=== PATIENT | female | born 1950 | race Caucasian/White ===

== ENCOUNTER 2025-07-29 19:20 | Inpatient (IN) | payer MEDICARE, SELFPAY ==
--- OUTSIDE RECORDS SUMMARY | 2025-02-03 09:00 | XMS_ITS ---
Author Organization [facility] Address [address] [place] [address] Care Team Providers Care Manufacturing Controls Engineer Name Role Phone BULL CONNORS MD Primary Care Provider JARRETT Mendoza Unavailable [phone] REASON FOR VISIT injection Encounters Encounter Location Date Provider Diagnosis [facility] [address] [place] [phone] 02/03/2025 JARRETT MILLER Plan Of Treatment No Information Progress Notes * IRENE FREEMANOB:[birth year] (74 yo F)Acc No.[id number]:02/03/2025 Progress Notes Patient: SONU SCHAFER Provider: Kassy Miller MD :1950 A ge:74 Y S ex:Female Date:02/03/2025 Address:[address] [place], [place] [id number] Pcp:BULL CONNORS MD Subjective: * Chief Complaints: * 1 . Injection. * Medical History: Objective: * Vitals: Assessment: Plan: * Treatment: * Images: * Electronic signature of SUSANNAH BEGUM MD on 07/29/2025 at 07:25 PM EDT Sign off status: Pending * Provider: Kassy Miller MD Date: 02/03/2025 Generated for Oscari ng/Faizaiahg/eTransmitting on: 0 07/29/2025 07:25 PM EDT
--- OUTSIDE RECORDS SUMMARY | 2025-04-17 09:30 | XMS_ITS ---
Author Organization [facility] Address [address] [place] [address] Care Team Providers Care Barrel Cooper Name Role Phone BULL CONNORS MD Primary Care Provider UnavailJARRETT Greer Unavailable [phone] REASON FOR VISIT sick Medications Medication SIG (Take, Route, Frequency, Duration) Notes Start Date End Date Status Furosemide Not-Takin g amLODIPine Benzoate 5mg Not-Taking Omeprazole 20 MG 1 Capsule Orally Onc e a day Active Rosuvastatin Calcium 20 MG 1 tablet Orally Once a day Active Aspir-81 Not-Taking Aspirin 81 81 MG 1 tablet Orally Once a day Active Vitamin D3 125 MCG (5000 UT) 1 capsule Orally Once a day Active oxyCODONE-Acetaminophen 5-325 MG 1 tablet as needed Orally every 6 hrs Active Ferrous Sulfate 325 (65 Fe) MG 1 tablet Orally daily Active DULoxetine HCl 60 MG 1 capsule Orally On ce a day Active Encounters Encounter Location Date Provider Diagnosis [facility] [address] [place] [phone] 04/17/2025 JARRETT MILLER Plan Of Treatment No Information Progress Notes * SERGIODASHAYANIQUE KHANBRITNEYOB:[birth year] (74 yo F)Acc No.[id number]:04/17/2025 Progress Notes Patient: SONU SCHAFER Provider: Kassy Miller MD :1950 A ge:74 Y S ex:Female Date:04/17/2025 Address:[address] [facility] Pcp:BULL CONNORS MD Subjective: * Chief Complaints: * 1 . Sick. * Medical History: * Medications: T aking Aspirin 81 81 MG Tablet Delayed Release 1 tablet Orally Once a day , Taking oxyCODONE-Acetaminophen 5-325 MG Tablet 1 tablet as needed Orally every 6 hrs , Taking Vitamin D3 125 MCG (5000 UT) Capsule 1 capsule Orally Once a day , Taking DULoxetine HCl 60 MG Capsule Delayed Release Particles 1 capsule Orally Once a day , Taking Ferrous Sulfate 325 (65 Fe) MG Tablet 1 tablet Orally daily , Taking Rosuvastatin Calcium 20 MG Tablet 1 tablet Orally Once a day , Taking Omeprazole 20 MG Capsule Delayed Release 1 Capsule Orally Once a day , Not-Taking/PRN Aspir-81 , Not-Taking/PRN amLODIPine Benzoate , Notes to Pharmacist: 5mg, Not-Taking/PRN Furosemide Objective: * Vitals: Assessment: Plan: * Treatment: * Images: * Electronic signature of SUSANNAH EBGUM MD on 07/29/2025 at 07:26 PM EDT Sign off status: Pending * Provider: Kassy Miller MD Date: 0 04/17/2025 Generated for Eulalio solorio/iVctor Manuel/Eduardo on: 0 07/29/2025 07:26 PM EDT
--- OUTSIDE RECORDS SUMMARY | 2025-05-07 10:06 | XMS_ITS ---
Author Organization [facility] Address [address] [place] [address] Care Team Providers Care Agricultural Research Director Name Role Phone Inderjit Reese Primary Care Provider REASON FOR VISIT refill MEDICATIONS Medication SIG (Take, Route, Fr equency, Duration) Notes Start Date End Date Status DULoxetine HCl 60 MG 1 capsule Orally Tw ice a day for 90 Days Active Encounters Encounter Location Date Provider Diagnosis [facility] [address] [place] [address] 05/07/2025 Inderjit Reese Depression F32.9 ASSESSMENTS Encounter Date Diagnosis Assessment Notes Treatment Notes Treatment Clinical Notes Section Notes 05/07/2025 Depression (ICD-10 - F32.9) PLAN OF TREATMENT Medication Medication Name Sig Start Date Stop Date Notes Omeprazole 20 MG 1 capsule 1/2 to 1 h our before morning meal Orally Once a day Rosuvastatin Calcium 20 MG TAKE 1 TABLET BY MOUTH EVERY DAY DULoxetine HCl 60 MG 1 capsule Orally Tw ice a day for 90 Days Next Appt Details Provider Name:Inderjit rivera, 08/17/2025 02:45:00 PM, [address] [place] [address], [phone],
--- OUTSIDE RECORDS SUMMARY | 2025-05-18 10:00 | XMS_ITS ---
Author Organization [facility] Address [address] [place] [address] Care Team Providers Care Distillery Worker General Name Role Phone Inderjit Reese Primary Care Provider ALLERGIES No Known Allergies REASON FOR VISIT (IN OFFICE), Follow Up MEDICATIONS Medication SIG (Take, Route, Frequency, Duration) Notes Start Date End Date Status Clobetasol Propionate 0.05 % 1 application to affected areas Externally Twice a day for 30 days Active Folic Acid 1 MG 1 tablet Orally Once a day for 90 Days Active Ipratropium-Albuterol 0.5-2.5 (3) MG/3ML 3 mL as needed Inhalation every 6 hrs Active oxyCODONE-Acetaminophen 5-325 MG 1 tablet as needed Orally every 6 hrs partial fill upon request for 30 days 05/18/2025 Active Albuterol Sulfate HFA 108 (90 Base) MCG/ACT 2 puffs as needed Inhalation every 4 hrs Active Omeprazole 20 MG TAKE 1 CAPSULE BY MO [facility] TWICE A DAY Active Vitamin D3 2000 UNIT TAKE [address] [facility] EVERY DAY Active Rosuvastatin Calcium 20 MG TAKE 1 TABLET BY MOUTH EVERY DAY Active traZODone HCl 150 MG TAKE 1 TABLET BY MO [facility] EVERY DAY AT BEDTIME NEEDED FOR 90 DAYS for 90 Not-Taking Ferrous Sulfate 325 (65 Fe) MG TAKE 1 TABLET BY MOUTH EVERY DAY FOR 90 DAYS for 90 Active DULoxetine HCl 60 MG 1 capsule Orally Tw ice a day for 30 days Active Adult Mask Large - as directed . daily, replace after 1 week for 30 days 04/17/2025 Active Portable Oxygen Concentrator . 2ml Intranasally continuously for 99 02/28/2025 Active Colace 100 MG 1 capsule as needed Orally Once a day Active amLODIPine Besylate 2.5 MG 1 tablet Orally Once a day for 30 day(s) Active [place]ke 3 340 MG 1 capsule Orally Onc e a day Active Breztri Aerosphere 160-9-4.8 MCG/ACT 2 puffs Inhalation Twice a day for 30 days Active VITAL SIGNS Blood pressure systolic 104 mm Hg 05/18/20 25 Blood pressure diastolic 68 mm Hg 025 Heart Rate 76 /min 05/18/2025 Height 62 in 05/18/2025 Weight 158.6 lbs 05/18/2025 BMI 29.01 kg/m2 05/18/2025 Encounters Encounter Location Date [facility] [address] [place] [address] 05/18/2025 Inderjit Reese Essential hypertensi on I10 ; Iron deficiency anemia, unspecified iron deficiency anemia type D50.9 ; COPD, 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 ; Primary osteoarthritis involving multiple joints M15.0 ; Primary insomnia F51.01 ; Depression F32.9 ; Gastroesophageal reflux disease without esophagitis K21.9 ; Mixed hyperlipidemia E78.2 ; Anxiety F41.9 and Vitamin D deficiency E55.9 ASSESSMENTS Encounter Date Diagnosis Assessment Notes Treatment Notes Treatment Clinical Notes Section Notes 05/18/2025 Essential hypertension (ICD-10 - I10) 05/18/2025 Iron deficiency anemia, unspecified iron deficiency anemia type (ICD-10 - D50.9) 05/18/2025 COPD, severe (ICD-10 - J44.9) 05/18/2025 Primary osteoarthritis involving multiple joints (ICD-10 - M15.0) In accordance with Chapter 52 - Acts of 2016, '' An Act Relative to Substance Use Treatment, Education and Prevention, the risks associated with opioid and opioid-like substances has been discussed with the patient. The patient clearly understands that the medication is to control chronic pain and to improve quality of life and functionality. Patient uses the medication judiciously as prescribed and displays no aberrant behavior. The patient has been made aware of other non-opioid treatment options including medications and interventional procedures. The patient was given the option to fill the prescription in lesser amount. [place] PAT verified. 05/18/2025 Primary insomnia (ICD-10 - F51.01) 05/18/2025 Depression (ICD-10 - F32.9) 05/18/2025 Gastroesophageal reflux disease without esophagitis (ICD-10 - K21.9) 05/18/2025 Mixed hyperlipidemia (ICD-10 - E78.2) 05/18/2025 Anxiety (ICD-10 - F41.9) 05/18/2025 Vitamin D deficiency (ICD-10 - E55.9) 05/18/2025 Other This chart has been transcribed by a computerized dictation system. There are likely to be multiple shaper machine hand inaccuracies despite chart review. PLAN OF TREATMENT Medication Medication Name Sig Start Date Stop Date Notes Clobetasol Propionate 0.05 % 1 applicati on to affected areas Externally Twice a day for 30 days Folic Acid 1 MG 1 tablet Orally Once a day for 90 Days Ipratropium-Albuterol 0.5-2. 5 (3) MG/3ML 3 mL as needed Inhalation every 6 hrs oxyCODONE-Acetaminophen 5-32 5 MG 1 tablet as needed Orally every 6 hrs partial fill upon request for 30 days 05/18/2025 Albuterol Sulfate HFA 108 (9 0 Base) MCG/ACT 2 puffs as needed Inhalation every 4 hrs Omeprazole 20 MG TAKE 1 CAPSULE BY MO U[facility] TWICE A DAY Vitamin D3 2000 UNIT TAKE 1 CAPSULE BY M OUTH EVERY DAY Rosuvastatin Calcium 20 MG TAKE 1 TABLET BY MOUTH EVERY DAY DULoxetine HCl 60 MG 1 capsule Orally Tw ice a day for 30 days Colace 100 MG 1 capsule as needed Orally Once a day amLODIPine Besylate 2.5 MG 1 tablet Oral ly Once a day for 30 day(s) Breztri Aerosphere 160-9-4.8 MCG/ACT 2 puffs Inhalation Twice a day for 30 days Treatment Notes Assessment Notes Primary osteoarthritis invol ving multiple joints In accordance with Chapter 52 - Acts of 2016, '' An Act Relative to Substance Use Treatment, Education and Prevention, the risks associated with opioid and opioid-like substances has been discussed with the patient. The patient clearly understands that the medication is to control chronic pain and to improve quality of life and functionality. Patient uses the medication judiciously as prescribed and displays no aberrant behavior. The patient has been made aware of other non-opioid treatment options including medications and interventional procedures. The patient was given the option to fill the prescription in lesser amount. [facility]. Other This chart has been transcribed by a computerized dictation system. There are likely to be multiple shaper machine hand inaccuracies despite chart review. Next Appt Details Follow Up: 4 Weeks, Reason: Follow up with Nicole Provider Name:Inderjit rivera, 08/17/2025 02:45:00 PM, [address] [place] [address], [phone], Progress Notes * Examination Category Sub-Category Detail Notes Category Not es General Examination GENERAL APPEARANCE: in no ac kaw distress, well developed, well nourished HEAD: normocephalic, atrau matic EYES: pupils equal, round, reactive to light and accommodation THROAT: clear, no erythema, uvula midline, no exudate NECK/THYROID: neck supple, no thyr omegaly, trachea midline, no carotid bruit HEART: no murmurs, regular rate and rhythm, S1, S2 normal LUNGS: clear to auscultatio n bilaterally, diminished breath sounds throughout ABDOMEN: soft, nontender, non distended, no organomegaly , bowel sounds present NEUROLOGIC: alert and oriented x 3, nonfocal SKIN: Ecchymotic areas to bilateral forearms EXTREMITIES: no clubbing, cyanosi s, or edema, no calftenderness, Homans sign negative PERIPHERAL PULSES: normal, 2+ throughou t MUSCULOSKELETAL: normal, full range o f motion LYMPH NODES: no cervical, axillar y, supraclavicular or inguinal adenopathy PSYCH: cognitive function i ntact, mood/affect full range ORAL CAVITY: mucosa moist, no les ions, palate normal, tongue in midline, well papillated History and Physical Notes * HPI (History of Present Illness) Category Sub-Category Detail Notes Category Not es Symptom(s) 74-year-old fem bela patient with history of hypertension, anxiety, depression, hyperlipidemia, GERD, kidney stone and insomnia , 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 Patient is feeling much better since being seen in our office about 2 weeks or call after following and fracturing her right lateral epicondyle. Since her last visit she has followed up with orthopedic surgery, is no longer wearing her splint, is healing well and does not plan to have any surgery. At this time she is not taking any medications for her insomnia because she believes this was the cause of her fall. Her chronic pain is reasonably controlled with current dose of Percocet. Her blood pressure is well controlled on current dose of amlodipine. Her depression symptoms are stable with current dose of duloxetine. She denies chest pain, palpitations, or shortness of breath.
--- OUTSIDE RECORDS SUMMARY | 2025-06-15 11:00 | XMS_ITS ---
Author Organization [facility] Address [address] [place] [address] Care Team Providers Care Wax Pot Tender Name Role Phone MynormiguelInderjit Primary Care Provider REASON FOR VISIT (IN OFFICE), Follow Up MEDICATIONS Medication SIG (Take, Route, Frequency, Duration) Notes Start Date End Date Status Colace 100 MG 1 capsule as needed Orally Once a day Active Rosuvastatin Calcium 20 MG TAKE 1 TABLET BY MOUTH EVERY DAY Active Omeprazole 20 MG TAKE 1 CAPSULE BY MO [facility] TWICE A DAY Active Vitamin D3 2000 UNIT TAKE 1 CAPSULE BY M OUTH EVERY DAY Active [place] 3 340 MG 1 capsule Orally Onc e a day Active Folic Acid 1 MG 1 tablet Orally Once a day for 90 Days Active Clobetasol Propionate 0.05 % 1 application to affected areas Externally Twice a day for 30 days Active amLODIPine Besylate 2.5 MG 1 tablet Oral ly Once a day for 30 day(s) Active DULoxetine HCl 60 MG 1 capsule Orally Tw ice a day for 30 days Active Rosuvastatin Calcium 20 MG TAKE 1 TABLET BY MOUTH EVERY DAY for 90 Active Albuterol Sulfate HFA 108 (90 Base) MCG/ACT 2 puffs as needed Inhalation every 4 hrs Active Ipratropium-Albuterol 0.5-2.5 (3) MG/3ML 3 mL as needed Inhalation every 6 hrs Active Breztri Aerosphere 160-9-4.8 MCG/ACT 2 puffs Inhalation Twice a day for 30 days Active Ferrous Sulfate 325 (65 Fe) MG TAKE 1 TABLET BY MOUTH EVERY DAY FOR 90 DAYS for 90 Active Vitamin D3 50 MCG (2000 UT) TAKE 1 CAPSULE BY MOUTH EVERY DAY for 90 Active oxyCODONE-Acetaminophen 5-325 MG 1 tablet as needed Orally every 6 hrs partial fill upon request for 30 days 06/15/2025 Active Adult Mask Large - as directed . daily, replace after 1 week for 30 days 04/17/2025 Active Portable Oxygen Concentrator . 2ml Intranasally continuously for 99 02/28/2025 Active VITAL SIGNS Blood pressure systolic 124 mm Hg 06/15/20 Blood pressure diastolic 80 mm Hg 025 Heart Rate 78 /min 06/15/2025 Height 62 in 06/15/2025 Weight 159.0 lbs 06/15/2025 BMI 29.08 kg/m2 06/15/2025 Encounters Encounter Location Date [facility] [address] [place] [address] 06/15/2025 Inderjit Reese Essential hypertensi on I10 ; [...] Treatment Notes Treatment Clinical Notes Section Notes 06/15/2025 Essential hypertension (ICD-10 - I10) 06/15/2025 Iron deficiency anemia, unspecified iron deficiency anemia type (ICD-10 - D50.9) 06/15/2025 COPD, severe (ICD-10 - J44.9) 06/15/2025 Primary osteoarthritis involving multiple joints (ICD-10 - [...] to fill the prescription in lesser amount. [place] PAT verified. 06/15/2025 Primary insomnia (ICD-10 - F51.01) 06/15/2025 Depression (ICD-10 - F32.9) 06/15/2025 Gastroesophageal reflux disease without esophagitis (ICD-10 - K21.9) 06/15/2025 Mixed hyperlipidemia (ICD-10 - E78.2) 06/15/2025 Anxiety (ICD-10 - F41.9) 06/15/2025 Vitamin D deficiency (ICD-10 - E55.9) 06/15/2025 Other This chart has been transcribed by a computerized dictation system. There are likely to be multiple golf course equipment operator inaccuracies despite chart review. PLAN OF TREATMENT Medication Medication Name Sig Start Date Stop Date Notes Rosuvastatin Calcium 20 MG TAKE 1 TABLET BY MOUTH EVERY DAY Omeprazole 20 MG TAKE 1 CAPSULE BY MO [facility] TWICE A DAY Vitamin D3 2000 UNIT TAKE 1 CAPSULE BY M OUT EVERY DAY amLODIPine Besylate 2.5 MG 1 tablet Oral ly Once a day for 30 day(s) DULoxetine HCl 60 MG 1 capsule Orally Tw ice a day for 30 days Albuterol Sulfate HFA 108 (9 0 Base) MCG/ACT 2 puffs as needed Inhalation every 4 hrs Ipratropium-Albuterol 0.5-2. 5 (3) MG/3ML 3 mL as needed Inhalation every 6 hrs Breztri Aerosphere 160-9-4.8 MCG/ACT 2 puffs Inhalation Twice a day for 30 days oxyCODONE-Acetaminophen 5-32 5 MG 1 tablet as needed Orally every 6 hrs partial fill upon request for 30 days 06/15/2025 Treatment Notes Assessment Notes Primary osteoarthritis invol [...] to fill the prescription in lesser amount. [facility] verified. Other This chart has been transcribed by a computerized dictation system. There are likely to be multiple golf course equipment operator inaccuracies despite chart review. Next Appt Details Follow Up: 4 Weeks, Reason: Follow up with Nicole Provider Name:Inderjit rivera, 08/17/2025 02:45:00 PM, [address] [place] [address], [place], [phone], Progress Notes * Examination Category Sub-Category Detail Notes Category Not es General Examination GENERAL APPEARANCE: in no ac josé miguel distress, well developed, well nourished HEAD: normocephalic, [...] of T3 T5 T6 is here for follow-up. She tells me that she had CT chest and MRI lumbar spine a few days ago.. We have not received copies of the test results. She is not sure who ordered the test for her. Our office will try to get the test results. Her chronic pain is well controlled on current dose of Percocet. Patient's blood pressure is well controlled. She denies chest pain, palpitation, shortness of breath. Her GERD symptoms are well-controlled on current dose of omeprazole.
--- OUTSIDE RECORDS SUMMARY | 2025-07-12 10:45 | XMS_ITS ---
Author Organization [facility] Address [address] [place] [address] Care Team Providers Care Drafter Automotive Design Name Role Phone Inderjit Reese Primary Care Provider ALLERGIES No Known Allergies REASON FOR VISIT (IN OFFICE), Follow Up, Sick visit- left chest wall pain MEDICATIONS Medication SIG (Take, Route, Frequency, Duration) Notes Start Date End Date Status Ibuprofen 800 MG 1 tablet with food o r milk as needed Orally every 8 hrs for 14 days 07/12/2025 Active Lidocaine 5 % 1 patch remove after 12 hours Externally Once a day for 14 days 07/12/2025 Active DULoxetine HCl 60 MG 1 capsule Orally Tw ice a day for 30 days Active amLODIPine Besylate 2.5 MG 1 tablet Oral ly Once a day for 30 day(s) Active Cyclobenzaprine HCl 10 MG 1 tablet as ne eded Orally 3 times a day for 14 days 07/12/2025 Active amLODIPine Besylate 5 MG TAKE 1 TABLET B Y MOUTH EVERY DAY Oral for 90 Active Gabapentin 100 MG 1 capsule Orally 3 t imes a day for 30 day(s) 07/12/2025 Active traZODone HCl 150 MG TAKE 1 AND A 1/2 TA BLETS BY MOUTH EVERY DAY AT BEDTIME NEEDED for 90 Active Breztri Aerosphere 160-9-4.8 MCG/ACT 2 puffs Inhalation Twice a day for 30 days Active Ipratropium-Albuterol 0.5-2.5 (3) MG/3ML 3 mL as needed Inhalation every 6 hrs Active oxyCODONE-Acetaminophen 5-325 MG 1 tablet as needed Orally every 6 hrs partial fill upon request for 30 days 07/12/2025 Active Rosuvastatin Calcium 20 MG TAKE 1 TABLET BY MOUTH EVERY DAY for 90 Active Vitamin D3 50 MCG (2000 UT) TAKE 1 CAPSU LE BY MOUTH EVERY DAY for 90 Active Ferrous Sulfate 325 (65 Fe) MG TAKE 1 TABLET BY MOUTH EVERY DAY FOR 90 DAYS for 90 Active Albuterol Sulfate HFA 108 (90 Base) MCG/ACT 2 puffs as needed Inhalation every 4 hrs Active Omeprazole 20 MG TAKE 1 CAPSULE BY MO UTH TWICE A DAY Active Rosuvastatin Calcium 20 MG TAKE 1 TABLET BY MOUTH EVERY DAY Active Vitamin D3 2000 UNIT TAKE 1 CAPSULE BY M OUTH EVERY DAY Active Adult Mask Large - as directed . daily, replace after 1 week for 30 days 04/17/2025 Active Portable Oxygen Concentrator . 2ml Intranasally continuously for 99 02/28/2025 Active Clobetasol Propionate 0.05 % 1 applicati on to affected areas Externally Twice a day for 30 days Active Aspirin 81 MG 1 tablet Orally Once a day for 30 day(s) Active Colace 100 MG 1 capsule as needed Orally Once a day Active Folic Acid 1 MG 1 tablet Orally Once a day for 90 Days Active [place] 3 340 MG 1 capsule Orally Onc e a day Active PROBLEMS Problem Type ICD Code Onset Dates Problem Status W/U Status Risk SNOMED Code Notes Problem Age-related osteoporosis with current pathological fracture, initial encounter (M80.XA) Active confirmed [id number] VITAL SIGNS Blood pressure systolic 128 mm Hg 07/12/20 25 Blood pressure diastolic 70 mm Hg 025 Heart Rate 88 /min 07/12/2025 Height 62 in 07/12/2025 Weight 159 lbs 07/12/2025 BMI 29.08 kg/m2 07/12/2025 Encounters Encounter Location Date Provider Diagnosis [facility] [address] [place] [address] 07/12/2025 Inderjit Reese COPD, 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 ; Neuralgia M79.2 ; Muscle spasm M62.838 ; Primary osteoarthritis involving multiple joints M15.0 ; Essential hypertension I10 ; Primary insomnia F51.01 ; Depression F32.9 ; Gastroesophageal reflux disease without esophagitis K21.9 ; Mixed hyperlipidemia E78.2 ; Anxiety F41.9 ; Vitamin D deficiency E55.9 and Age-related osteoporosis with current pathological fracture, initial encounter M80.00XA ASSESSMENTS Encounter Date Diagnosis Assessment Notes Treatment Notes Treatment Clinical Notes Section Notes 07/12/2025 COPD, severe (ICD-10 - J44.9) 07/12/2025 Neuralgia (ICD-10 - M79.2) 07/12/2025 Muscle spasm (ICD-10 - M62.838) 07/12/2025 Primary osteoarthritis involving multiple joints (ICD-10 - [...] prescription in lesser amount. [place] PAT verified. 07/12/2025 Essential hypertension (ICD-10 - I10) 07/12/2025 Primary insomnia (ICD-10 - F51.01) 07/12/2025 Depression (ICD-10 - F32.9) 07/12/2025 Gastroesophageal reflux disease without esophagitis (ICD-10 - K21.9) 07/12/2025 Mixed hyperlipidemia (ICD-10 - E78.2) 07/12/2025 Anxiety (ICD-10 - F41.9) 07/12/2025 Vitamin D deficiency (ICD-10 - E55.9) 07/12/2025 Age-related osteoporosis with current pathological fracture, initial encounter (ICD-10 - M80.00XA) 07/12/2025 Other This chart has been transcribed by a computerized dictation system. There are likely to be multiple missile facilities repairer inaccuracies despite chart review. PLAN OF TREATMENT Medication Medication Name Sig Start Date Stop Date Notes Ibuprofen 800 MG 1 tablet with food o r milk as needed Orally every 8 hrs for 14 days 07/12/2025 Lidocaine 5 % 1 patch remove after 12 hours Externally Once a day for 14 days 07/12/2025 DULoxetine HCl 60 MG 1 capsule Orally Tw ice a day for 30 days amLODIPine Besylate 2.5 MG 1 tablet Oral ly Once a day for 30 day(s) Cyclobenzaprine HCl 10 MG 1 tablet as ne eded Orally 3 times a day for 14 days 07/12/2025 Gabapentin 100 MG 1 capsule Orally 3 t imes a day for 30 day(s) 07/12/2025 Breztri Aerosphere 160-9-4.8 MCG/ACT 2 puffs Inhalation Twice a day for 30 days Ipratropium-Albuterol 0.5-2. 5 (3) MG/3ML 3 mL as needed Inhalation every 6 hrs oxyCODONE-Acetaminophen 5-325 MG 1 table t as needed Orally every 6 hrs partial fill upon request for 30 days 07/12/2025 Albuterol Sulfate HFA 108 (9 0 Base) MCG/ACT 2 puffs as needed Inhalation every 4 hrs Omeprazole 20 MG TAKE 1 CAPSULE BY MO UTH TWICE A DAY Rosuvastatin Calcium 20 MG TAKE 1 TABLET BY MOUTH EVERY DAY Vitamin D3 2000 UNIT TAKE 1 CAPSULE BY M OUTH EVERY DAY Treatment Notes Assessment Notes Primary osteoarthritis invol [...] to fill the prescription in lesser amount. [facility]. Other This chart has been transcribed by a computerized dictation system. There are likely to be multiple missile facilities repairer inaccuracies despite chart review. Pending Test Test Name Order Date Bone Density 07/12/2025 Next Appt Details Follow Up: 4 Weeks, Reason: Follow-up [facility] Dr. Reese Provider Name:Inderjit rivera, 08/17/2025 02:45:00 PM, [address] [place] [address], [phone], Progress Notes * Examination Category Sub-Category Detail [...] 3, nonfocal SKIN: Ecchymotic areas to bilateral arms EXTREMITIES: no clubbing, cyanosi s, or edema PERIPHERAL PULSES: normal, 2+ throughou t MUSCULOSKELETAL: [...] T3 T5 T6 is here for follow-up. Patient is doing well on her current medications without any side effects. Her blood pressure is well controlled on current dose of amlodipine. Her chronic respiratory symptoms are stable on current inhalers. Her depression symptoms are well controlled on current dose of duloxetine. She denies chest pain, palpitations, or shortness of breath. Patient is requesting to have a bone density scan for reimbursement from her insurance company which I will order for her. Patient complains of sharp pain at the site of her left rib scar. She tells me that she twisted the wrong way and pulled something. Patient also tells me that she has been taking oxycodone and is going to run out early. I advised patient to come to the office if she injured herself so that we can provide other non opioid pain medications. I will prescribe lidocaine patches, cyclobenzaprine 10 mg 3 times a day, gabapentin 100 mg 3 times a day, and ibuprofen 800 mg. I advised patient to start taking cyclobenzaprine and gabapentin at nighttime and gradually taper up to 3 times a day if needed.
--- OUTSIDE RECORDS SUMMARY | 2025-07-25 10:30 | XMS_ITS ---
Author Organization [facility] Address [address] [place] [address] Care Team Providers Care Club Manager Name Role Phone MynormiguelInderjit Primary Care Provider ALLERGIES Allergen (clinical drug ingredient) Drug/Non Drug Allergy documented on EMR Reaction Allergy Type Onset Date Status cyclobenzaprine Cyclobenzaprine Unknown Drug Allergy Active gabapentin Gabapentin Unknown Drug Allergy Activ e REASON FOR VISIT (IN OFFICE), Sick Visit MEDICATIONS Medication SIG (Take, Route, Frequency, Duration) Notes Start Date End Date Status Folic Acid 1 MG 1 tablet Orally Once a day for 90 Days Active Aspirin 81 MG 1 tablet Orally Once a day for 30 day(s) Active Clobetasol Propionate 0.05 % 1 application to affected areas Externally Twice a day for 30 days Active Colace 100 MG 1 capsule as needed Orally Once a day Active amLODIPine Besylate 2.5 MG 1 tablet Oral ly Once a day for 30 day(s) Active DULoxetine HCl 60 MG 1 capsule Orally Tw ice a day for 30 days Active Omeprazole 20 MG 1 capsule 1/2 to 1 h our before morning meal Orally Twice a day for 30 days Active Rosuvastatin Calcium 20 MG 1 tablet Oral ly Once a day for 30 days Active Ipratropium-Albuterol 0.5-2.5 (3) MG/3ML 3 mL as needed Inhalation every 6 hrs Active Albuterol Sulfate HFA 108 (90 Base) MCG/ACT 2 puffs as needed Inhalation every 4 hrs Active Breztri Aerosphere 160-9-4.8 MCG/ACT 2 puffs Inhalation Twice a day for 30 days Active Vitamin D3 2000 UNIT TAKE 1 CAPSULE BY M OUTH EVERY DAY Active oxyCODONE-Acetaminophen 5-325 MG 1 tablet as needed Orally every 6 hrs partial fill upon request for 30 days Active traZODone HCl 150 MG TAKE 1 AND A 1/2 TA BLETS BY MOUTH EVERY DAY AT BEDTIME NEEDED for 90 Active Ferrous Sulfate 325 (65 Fe) MG TAKE 1 TABLET BY MOUTH EVERY DAY FOR 90 DAYS for 90 Active amLODIPine Besylate 5 MG TAKE 1 TABLET B Y MOUTH EVERY DAY Oral for 90 Active Lidocaine 5 % 1 patch remove after 12 hours Externally Once a day for 14 days 07/12/2025 Active Ibuprofen 800 MG 1 tablet with food o r milk as needed Orally every 8 hrs for 14 days 07/12/2025 Active [place] 3 340 MG 1 capsule Orally Onc e a day Active Adult Mask Large - as directed . daily, replace after 1 week for 30 days 04/17/2025 Active Portable Oxygen Concentrator . 2ml Intranasally continuously for 99 02/28/2025 Active PROBLEMS Problem Type ICD Code Onset Dates Problem Status W/U Status Risk SNOMED Code Notes Problem Hallucinations (R44.3) Active confirmed [id number] VITAL SIGNS Blood pressure systolic 104 mm Hg 07/25/20 25 Blood pressure diastolic 64 mm Hg 025 Heart Rate 64 /min 07/25/2025 Height 62 in 07/25/2025 Weight 156 lbs 07/25/2025 BMI 28.53 kg/m2 07/25/2025 Encounters Encounter [facility] Date [facility] [address] [place] [address] 07/25/2025 Inderjit Reese Essential hypertensi on I10 ; Hallucinations R44.3 ; Iron deficiency anemia, unspecified iron deficiency anemia type D50.9 ; COPD, 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 I advised the patient to hold amlodipine and to have blood pressure goes back to normal. 07/25/2025 Hallucinations (ICD-10 - R44.3) 07/25/2025 Iron deficiency anemia, unspecified iron deficiency anemia type (ICD-10 - D50.9) 07/25/2025 COPD, severe (ICD-10 - J44.9) 07/25/2025 Primary osteoarthritis involving multiple joints (ICD-10 - [...] prescription in lesser amount. [place] PAT verified. 07/25/2025 Primary insomnia (ICD-10 - F51.01) 07/25/2025 Depression (ICD-10 - F32.9) 07/25/2025 Gastroesophageal reflux disease without esophagitis (ICD-10 - K21.9) 07/25/2025 Mixed hyperlipidemia (ICD-10 - E78.2) 07/25/2025 Anxiety (ICD-10 - F41.9) 07/25/2025 Vitamin D deficiency (ICD-10 - E55.9) 07/25/2025 Other This chart has been transcribed by a computerized dictation system. There are likely to be multiple lather apprentice inaccuracies despite chart review. This chart has been transcribed by a computerized dictation system. There are likely to be multiple lather apprentice inaccuracies despite chart review. PLAN OF TREATMENT Medication Medication Name Sig Start Date Stop Date Notes Gabapentin 100 MG 1 capsule Orally 3 t imes a day 07/12/2025 amLODIPine Besylate 2.5 MG 1 tablet Oral ly Once a day for 30 day(s) DULoxetine HCl 60 MG 1 capsule Orally Tw ice a day for 30 days Cyclobenzaprine HCl 10 MG 1 tablet as ne eded Orally 3 times a day 07/12/2025 Omeprazole 20 MG 1 capsule 1/2 to 1 h our before morning meal Orally Twice a day for 30 days Rosuvastatin Calcium 20 MG 1 tablet Oral ly Once a day for 30 days Ipratropium-Albuterol 0.5-2. 5 (3) MG/3ML 3 mL as needed Inhalation every 6 hrs Albuterol Sulfate HFA 108 (9 0 Base) MCG/ACT 2 puffs as needed Inhalation every 4 hrs Breztri Aerosphere 160-9-4.8 MCG/ACT 2 puffs Inhalation Twice a day for 30 days Vitamin D3 2000 UNIT TAKE 1 CAPSULE BY M OUTH EVERY DAY oxyCODONE-Acetaminophen 5-325 MG 1 table t as needed Orally every 6 hrs partial fill upon request for 30 days Treatment Notes Assessment Notes Essential hypertension Patient's blood p ressures in the low side. I advised the patient to hold amlodipine and to have blood pressure goes back to normal. Primary osteoarthritis invol ving multiple joints In [...] to fill the prescription in lesser amount. [facility] verified. Other This chart has been transcribed by a computerized dictation system. There are likely to be multiple lather apprentice inaccuracies despite chart review. This chart has been transcribed by a computerized dictation system. There are likely to be multiple lather apprentice inaccuracies despite chart review. Next Appt Details Follow Up: as scheduled, Radha son: Provider Name:Inderjit rivera, 08/17/2025 02:45:00 PM, [address] [place] [address], [phone], Progress Notes * Examination Category Sub-Category Detail [...] of T3 T5 T6 is here for recent ER visit follow-up. At her last visit she was complaining of worsening back pain. Patient was started on gabapentin 100 mg by mouth 3 times a day and cyclobenzaprine 10 mg by mouth daily at bedtime. Patient's sisters were accompanying her to the visit, that they're not sure whether she took more than what she was advised to achieve became hallucinating and admitted after not seeing people in the room. She called 911 and was taken to the emergency room. I reviewed the ER notes during the visit. The ER doctor believed that patient's condition was side effect of one of the medications. Had lab results were within acceptable range. She had a negative CT head what she was in the ER. I explained to the patient and her sister says that if her symptoms were due to side effects of medications is congratulated gets better. About medications for hallucinations such as olanzapine or risperidone. I explained to the patient that I prefer not to add new medication at this time. Patient's sister stone that she puts her medications in a pillbox and gets rid of. Actual prescription bottle. I sent all her regular medications for one month at a pharmacy and advised him to discard any lose pill in the pillbox. I emphasized the importance of medication supervision.
--- OUTSIDE RECORDS SUMMARY | 2025-07-29 19:26 | XMS_ITS | Clinical Summary ---
Author Organization [facility] Address [address] [place] [id number] Phone Care Team Providers Care Magazine Grinder Loader Name Role Phone Pcp, Not Required Primary Care Provider Unavaila ble Allergies No known active allergies Social History Tobacco Use Types Packs/Day Years Used Date Smoking Tobacco: Never Assessed Education Answer Date Recorded Are you interested in more education? Not on jefferson e 03/21/2023 Are you concerned about learning? Not on file 03/21/2023 No 03/21/2023 No 03/21/2023 Digital Access Answer Date Recorded No 04/18/2023 No 04/18/2023 No 04/18/2023 Reliable internet access at home? Not on file 04/18/2023 Device with a working camera? Not on file Comments Unknown Sex and Gender Information Value Date Recorded Sex Assigned at Not on file Legal Sex Female 5:21 PM EST Gender Identity Not on file Sexual Orientation Not on file Last Filed Vital Signs Vital Sign Reading Time Taken Comments Blood Pressure 91/46 06/18/2011 12:00 AM EDT Pulse 70 06/18/2011 12:00 AM EDT Temperature 36.6 C (97.8 F) 06/18/2011 12:00 AM EDT Respiratory Rate 14 06/18/2011 12:00 AM EDT Oxygen Saturation 99% 06/18/2011 12:00 AM EDT 2 L Inhaled Oxygen Concentration - - Weight 55.3 kg (122 lb) 06/18/2011 12:00 AM EDT lbs. Height 152.4 cm (5') 06/18/2011 12:00 AM EDT in. Body Mass Index 23.83 06/18/2011 12:00 AM EDT Plan of Treatment Health Maintenance Due Date Last Done Comments Adult Td,Tdap Booster 1950 LIPID PANEL 1950 DEPRESSION SCREENING 1962 SMOKING Hx and SMOKELESS TOBACCO SCREENING 1963 HEPATITIS C SCREENING 1968 COLOGUARD 1995 COLONOSCOPY 1995 COLORECTAL CANCER SCREENING 1995 FIT TEST 1995 FOBT 1995 SIGMOIDOSCOPY 1995 VIRTUAL COLONOSCOPY 1995 ZOSTER VACCINES (1 of 2) 2000 MAMMOGRAM 01/01/2013 01/01/2011, 06/25/2010, 05/12/2010 OSTEOPOROSIS SCREENING INITI AL (ONE-TIME) 2015 PNEUMOCOCCAL VACCINES (50+ years) (2 of 2 - PCV) 08/27/2021 08/27/2020 COVID-19 VACCINE (2 - 2023-2 5 season) 2024 03/11/2021 RSV VACCINE (1 - 1-dose 75+ series) 2025 HEPATITIS A VACCINES Aged Out No long er eligible based on patient's age to complete this topic HIB VACCINES Aged Out No longer eligi ble based on patient's age to complete this topic MENINGOCOCCAL VACCINES (ACWY) Aged Out No longer eligible based on patient's age to complete this topic MENINGOCOCCAL VACCINES (B) Aged Out N o longer eligible based on patient's age to complete this topic Medical Devices Not on file Procedures Procedure Name Priority Date/Time Associated Diagnosis Comments BI MAMMOGRAM OUTSIDE Routine 01/01/2011 3:25 PM EST from Last 3 Months or Most Recently Relevant to Health Maintenance Insurance [place] BLUE REPLACEMENT MEDICARE PART A & B [facility] MEDICARE PPO BLUE REPLACEMENT MEDICARE PART A & B [facility] MEDICARE PPO BLUE REPLACEMENT MEDICARE PART A & B [place] BL[place] MEDICARE PART A & B [facility] MEDICARE PPO BLUE REPLACEMENT MEDICARE PART A & B [facility] MEDICARE PPO BLUE REPLACEMENT MEDICARE PART A & B [facility] MEDICARE PPO BLUE REPLACEMENT MEDICARE PART A & B [facility] MEDICARE PPO BLUE REPLACEMENT MEDICARE PART A & [place] [address] [address] [place] [address] MEDICARE PPO BLUE REPLACEMENT MEDICARE PART A & B Care Teams Magazine Grinder Loader Relationship Specialty Start Date End Date Pcp, Not Required [address] [place] [id number] PCP - General 02/28/21 Additional Source Comments The information contained in this document represents components of the legal health record. It is not the complete legal health record.[facility]
--- OUTSIDE RECORDS SUMMARY | 2025-07-29 19:26 | XMS_ITS | Patient Health Record ---
Author Organization [facility] Address [address] [place] [address] Care Team Providers Care Consulting Technical Director Name Role Phone MynormiguelInderjit Primary Care Provider ALLERGIES Allergen (clinical drug ingredient) Drug/Non Drug Allergy documented on EMR Reaction Allergy Type Onset Date Status cyclobenzaprine Cyclobenzaprine Unknown Drug Allergy Active gabapentin Gabapentin Unknown Drug Allergy Activ e RESULTS Component Value Reference Range Notes Iron and TIBC-[id number] Reviewed date:11/18/2024 10:18:06 AM Interpretation: Performing Lab:[facility], [address] [place] [address], Phone - [phone], Director - MDJodry Notes/Report: Iron Bind.Cap.(TIBC) 416 250-450 ug/dL UIBC 350 118-369 ug/dL Iron 66 27-139 ug/dL Iron Saturation 16 15-55 % Ferritin-[id number] Reviewed date:11/18/2024 10:18:06 AM Interpretation: Performing Lab:[facility], [address] [place] [address], Phone - [phone], Director - MDJodry Notes/Report: Ferritin 54 15-150 ng/mL Vitamin B12 and Folate-41838 0 Reviewed date:11/18/2024 10:18:06 AM Interpretation: Performing Lab:[facility] [address] [place] [address], Phone - [phone], Director - MDJodry Notes/Report: Vitamin B12 975 789-9258 pg/mL Folate (Folic Acid), Serum 12.8 >3.0 ng/mL A serum folate concentration of less than 3.1 ng/mL is considered to represent clinical deficiency. CBC with Diff, Platelet, NLR -[id number] Reviewed date:11/18/2024 10:18:06 AM Interpretation: Performing Lab:[facility] [place], [facility], [place], Phone - [phone], Director - Jorge Notes/Report: WBC 4.3 3.4-10.8 x10E3/uL RBC 5.09 3.77-5.28 x10E6/uL Hemoglobin 13.3 11.1-15.9 g/dL Hematocrit 44.5 34.0-46.6 % MCV 87 79-97 fL MCH 26.1 26.6-33.0 pg MCHC 29.9 31.5-35.7 g/dL RDW 23.4 11.7-15.4 % Platelets 134 150-450 x10E3/uL Neutrophils 62 Not Estab. % Lymphs 23 Not Estab. % Monocytes 9 Not Estab. % Eos 5 Not Estab. % Basos 1 Not Estab. % Immature Cells Neutrophils (Absolute) 2.7 1.4-7.0 x10E3/uL Lymphs (Absolute) 1.0 0.7-3.1 x10E3/uL Neut/Lymph Ratio 2.7 0.0-2.9 ratio Published COVID-19 studies suggest: Low likelihood of severe COVID-19 disease progression 0.0-2.9 High likelihood of severe COVID-19 disease progression >4.9 Monocytes(Absolute) 0.4 0.1-0.9 x10E3/uL Eos (Absolute) 0.2 0.0-0.4 x10E3/uL Baso (Absolute) 0.0 0.0-0.2 x10E3/uL Immature Granulocytes 0 Not Estab. % Immature Grans (Abs) 0.0 0.0-0.1 x10E3/uL NRBC Hematology Comments: Note: Verifie d by microscopic examination. Basic Metabolic Panel (5)-65 [id number] Reviewed date:11/18/2024 10:18:06 AM Interpretation: Performing Lab:[facility], [address], [place], Phone - [phone], Director - Jorge Notes/Report: Glucose 92 70-99 mg/dL BUN 10 8-27 mg/dL Creatinine 0.74 0.57-1.00 mg/dL eGFR 85 >59 mL/min/1.73 BUN/Creatinine Ratio 14 12-28 Sodium 145 134-144 mmol/L Potassium 4.0 3.5-5.2 mmol/L Chloride 101 96-106 mmol/L Carbon Dioxide, Total 29 20-29 mmol/L Hepatic Function Panel (6)-3 [id number] Reviewed date:02/01/2025 12:54:42 PM Interpretation: Performing Lab:[facility] [address] [place] [address], Phone - [phone], Director - [facility] Notes/Report: Albumin 4.6 3.8-4.8 g/dL Bilirubin, Total 0.5 0.0-1.2 mg/dL Bilirubin, Direct 0.16 0.00-0.40 mg/dL Alkaline Phosphatase 63 44-121 IU/L AST (SGOT) 18 0-40 IU/L ALT (SGPT) 16 0-32 IU/L Lipid Panel-[id number] Reviewed date:02/01/2025 12:54:42 PM Interpretation: Performing Lab:[facility] Odon[facility] [address] [place] [address], Phone - [phone], Director - [facility] Notes/Report: Cholesterol, Total 163 100-199 mg/dL Triglycerides 138 0-149 mg/dL HDL Cholesterol 47 >39 mg/dL VLDL Cholesterol Fernando 24 5-40 mg/dL LDL Chol Calc ([facility]) 92 0-99 mg/dL LDL Calc Comment: Iron and TIBC-[id number] Reviewed date:03/07/2025 08:39:28 AM Interpretation: Performing Lab:Isaak Odonnell [address] [place] [address], Phone - [phone], Director - [facility] Notes/Report: Iron Bind.Cap.(TIBC) 374 250-450 ug/dL UIBC 259 118-369 ug/dL Iron 115 27-139 ug/dL Iron Saturation 31 15-55 % Ferritin-[id number] Reviewed date:03/07/2025 08:39:28 AM Interpretation: Performing Lab:Isaak Odonnell [address] [place] [address] [place], Phone - [phone], [facility] Notes/Report: Ferritin 123 15-150 ng/mL Comp. Metabolic Panel (13)-3 [id number] Reviewed date:03/07/2025 08:39:28 AM Interpretation: Performing Lab:[facility] [address] [facility], Phone - [phone], Director - [facility] Notes/Report: Glucose 96 70-99 mg/dL BUN 12 8-27 mg/dL Creatinine 0.73 0.57-1.00 mg/dL eGFR 86 >59 mL/min/1.73 BUN/Creatinine Ratio 16 12-28 Sodium 147 134-144 mmol/L Potassium 4.5 3.5-5.2 mmol/L Chloride 102 96-106 mmol/L Carbon Dioxide, Total 28 20-29 mmol/L Calcium 9.2 8.7-10.3 mg/dL Protein, Total 6.9 6.0-8.5 g/dL Albumin 4.7 3.8-4.8 g/dL Globulin, Total 2.2 1.5-4.5 g/dL Bilirubin, Total 0.5 0.0-1.2 mg/dL Alkaline Phosphatase 56 44-121 IU/L AST (SGOT) 18 0-40 IU/L CBC with Diff, Platelet, NLR -[id number] Reviewed date:03/07/2025 08:39:28 AM Interpretation: Performing Lab:[facility] [place], [address] [facility], [place], Phone - [phone], [facility] Notes/Report: WBC 6.9 3.4-10.8 x10E3/uL RBC 5.22 3.77-5.28 x10E6/uL Hemoglobin 16.2 11.1-15.9 g/dL Hematocrit 47.0 34.0-46.6 % MCV 90 79-97 fL MCH 31.0 26.6-33.0 pg MCHC 34.5 31.5-35.7 g/dL RDW 13.1 11.7-15.4 % Platelets 123 150-450 x10E3/uL Neutrophils 74 Not Estab. % Lymphs 16 Not Estab. % Monocytes 7 Not Estab. % Eos 2 Not Estab. % Basos 0 Not Estab. % Immature Cells Neutrophils (Absolute) 5.1 1.4-7.0 x10E3/uL Lymphs (Absolute) 1.1 0.7-3.1 x10E3/uL Neut/Lymph Ratio 4.6 0.0-2.9 ratio Published COVID-19 studies suggest: Low likelihood of severe COVID-19 disease progression 0.0-2.9 High likelihood of severe COVID-19 disease progression >4.9 Monocytes(Absolute) 0.5 0.1-0.9 x10E3/uL Eos (Absolute) 0.2 0.0-0.4 x10E3/uL Baso (Absolute) 0.0 0.0-0.2 x10E3/uL Immature Granulocytes 1 Not Estab. % Immature Grans (Abs) 0.0 0.0-0.1 x10E3/uL NRBC Hematology Comments: CT Chest LDCT Lung Program Reviewed date:05/30/2025 07:01:44 AM Interpretation: Performing Lab: Notes/Report: CT Chest LDCT Lung Program Reason: Other:; LDCT LUNG CANCER SCREENING PROGRAM. FORMER,QUIT AT AGE 67 ,30 PACK YEAR HX; Clinical Question(s): Other:; Special Instructions: BOOK AT [address] [place], [place] BOOK AFTER [address] IN THE 12 LAST MONTHS. NO LUNG CA, SIGNS OR SYPMTOMS. Visit type: Annual Screening TECHNIQUE: Low-dose helical CT of the chest without IV contrast (Adult Lung Cancer Screening) protocol was performed. Coronal reformats were obtained. Weight-based protocol using automatic tube modulation was used to optimize exposure parameters. CTDIvol Body: 2.82 mGy, DLP Body: 85 mGy*cm. COMPARISON: 05/26/2024 low-dose chest CT. FINDINGS: LUNG NODULES (measured on thin axial series 4 ): RIGHT lung: None. LEFT lung: None. OTHER FINDINGS: Machine Tracer view findings, lines and tubes: None. Trachea and airways: Patent without evidence of tracheal or endobronchial lesion. Lungs and pleura: Mildly or scarring in the right upper lobe, unchanged. Lungs are otherwise clear. No effusion or pneumothorax. Mediastinum and justin: No mass or hematoma. No mediastinal or hilar lymphadenopathy. No esophageal abnormality. Visualized thyroid gland is atrophic. Heart: Heart is normal in size. No pericardial effusion. Moderate coronary artery calcification. Lipomatous hypertrophy of the interatrial septum. Aorta: Mild vascular calcification but no aneurysm. Pulmonary arteries: Normal caliber. Chest wall soft tissues: No acute abnormality. Diaphragm: Intact. Upper abdomen: Partially imaged stones within the gallbladder. Large simple cyst in the left kidney upper pole, partially imaged. Bones: No acute abnormality. Severe degenerative changes in the left shoulder. Old right sided rib fractures. Extensive posterior fusion. IMPRESSION: 1. No pulmonary nodules. LungRad Category: 1 Negative. No nodules. Continue annual screening with LDCT in 12 months. 2. No significant additional findings requiring further evaluation. Lung-RAD Category Modifier: None. Categorization based on Lung-RADS 2021 criteria. [email or web address] WSN: [id number] Ordering Physician: Inderjit Reese Dictated By: Ebenezer Choudhury MD REASON FOR REFERRAL Reason Evaluate and treat Diagnosis 1 Osteoarthritis of sp ine with radiculopathy, lumbar region (M47.26) Referral Organization In[facility]it Reese [facility] Referring Provider First Name Inderjit Referring Provider Last Name Hugh Referring Provider Speciality Internal edicine Referred Provider Specialty Physical The rapist General Notes Laura Gonzalez 09/06/20 11:19:20 AM EDT > LMAM with appt date and time, Laura Gonzalez 09/15/2024 08:03:59 AM EDT > faxed again upon request Clinical Notes Yael PT in [facility] [phone] f: [phone] Referral Priority Routine Referral Appointment Date 09/25/2024 Reason Consultation Diagnosis 1 Osteoarthritis of cora mbar spine, unspecified spinal osteoarthritis complication status (M47.816) Referral Organization [facility] Referring Provider First Name Inderjit Referring Provider Last Name Hugh Referring Provider Speciality Internal edicine Referred Provider Specialty Pain Medicin e General Notes Camilla Jernigan 10/31/2024 09:42:03 AM EST > Request and info faxed to Dr. Hayes Referral Priority Routine Reason Consultation - APPT REQUEST & SUPPORTING DOCS EGD and colonoscopy Diagnosis 1 Iron deficiency anem ia, unspecified iron deficiency anemia type (D50.9) Referral Organization [facility] Referring Provider First Name Inderjit Referring Provider Last Name Hugh Referring Provider Speciality Internal edicine Referred Provider Specialty Gastroentero logy General Notes Juliane Norris 01/2025 10:49:37 AM EST > SENDING ALL TO DR. ROCAEL ledesma is useless, Juliane Norris 12/06/2024 01:28:03 PM EST > Colonoscopy scheduled January 29 and EGD Clinical Notes [phone], Referral Priority Routine Reason Consultation Diagnosis 1 Closed nondisplaced fracture of lateral epicondyle of right humerus with routine healing, unspecified fracture morphology, subsequent encounter (S41.613X) Referral Organization [facility] Referring Provider First Name Inderjit Referring Provider Last Name Hugh Referring Provider Speciality Internal M edicine Referred Provider Specialty Orthopedic S urgery General Notes Yoselyn Chinchilla 08:57:29 AM EDT > left VM to see where pt would like to go , Yoselyn Chinchilla 05/04/2025 09:19:18 AM EDT > PT [facility] to go [facility] will send the form then call my grandma (Nadege) on wednesday , Yoselyn Chinchilla 05/04/2025 09:48:12 AM EDT > Sent letter to pt as well , Yoselyn Chinchilla 05/07/2025 01:43:11 PM EDT > They didn't receive it I refaxed Nadege is sending a message to [facility] and they should be giving us or the pt a call. If I don't hear by the end of the day I will call first thing tomorrow. , Yoselyn Chinchilla 05/08/2025 09:46:15 AM EDT > Pt is also calling , Yoselyn Chinchilla 05/08/2025 01:25:51 PM EDT > left Vm for a pt to see if she got a hold of ortho. , Yoselyn Chinchilla 05/09/2025 09:51:20 AM EDT > Pt scheduled for 05/10 At 3:30 Clinical Notes [facility] , ph:, F:[phone] Referral Priority Routine Referral Appointment Date 05/10/2025 MEDICATIONS Medication SIG (Take, Route, Frequency, Duration) Notes Start Date End Date Status Ipratropium-Albuterol 0.5-2.5 (3) MG/3ML 3 mL as needed Inhalation every 6 hrs Active traZODone HCl 150 MG TAKE 1 AND A 1/2 TA BLETS BY MOUTH EVERY DAY AT BEDTIME NEEDED for 90 Active Albuterol Sulfate HFA 108 (90 Base) MCG/ACT 2 puffs as needed Inhalation every 4 hrs Active Ferrous Sulfate 325 (65 Fe) MG TAKE 1 TABLET BY MOUTH EVERY DAY FOR 90 DAYS for 90 Active amLODIPine Besylate 2.5 MG 1 tablet Oral ly Once a day for 30 day(s) Active Breztri Aerosphere 160-9-4.8 MCG/ACT 2 puffs Inhalation Twice a day for 30 days Active amLODIPine Besylate 5 MG TAKE 1 TABLET B Y MOUTH EVERY DAY Oral for 90 Active Folic Acid 1 MG 1 tablet Orally Once a day for 90 Days Active Lidocaine 5 % 1 patch remove after 12 hours Externally Once a day for 14 days 07/12/2025 Active DULoxetine HCl 60 MG 1 capsule Orally Tw ice a day for 30 days Active Aspirin 81 MG 1 tablet Orally Once a day for 30 day(s) Active Ibuprofen 800 MG 1 tablet with food o r milk as needed Orally every 8 hrs for 14 days 07/12/2025 Active Clobetasol Propionate 0.05 % 1 application to affected areas Externally Twice a day for 30 days Active Omeprazole 20 MG 1 capsule 1/2 to 1 h our before morning meal Orally Twice a day for 30 days Active Rosuvastatin Calcium 20 MG 1 tablet Oral ly Once a day for 30 days Active [place] 3 340 MG 1 capsule Orally Onc e a day Active Vitamin D3 2000 UNIT TAKE 1 CAPSULE BY M OUT EVERY DAY Active Colace 100 MG 1 capsule as needed Orally Once a day Active oxyCODONE-Acetaminophen 5-325 MG 1 tablet as needed Orally every 6 hrs partial fill upon request for 30 days Active Adult Mask Large - as directed . daily, replace after 1 week for 30 days 04/17/2025 Active Portable Oxygen Concentrator . 2ml Intranasally continuously for 99 02/28/2025 Active IMMUNIZATIONS Vaccine Route Administration Date Status Comme nts *Influenza (Fluarix Quad) IM Intramuscular 08/25/2018 Admi nistered *Influenza (Fluarix Quad) IM Intramuscular 08/10/2019 Admi nistered *Influenza (Fluarix Quad) IM Intramuscular 08/27/2020 Admi nistered *Influenza (Fluarix Quad) IM Intramuscular 08/18/2021 Admi nistered *Influenza (Fluarix Quad) IM Intramuscular 08/25/2022 Admi nistered *Influenza (Fluarix Quad) IM Intramuscular 09/02/2023 Admi nistered *Influenza (Fluarix Quad) IM Intramuscular 08/24/2024 Admi nistered Influenza (Flucelvax Quad) IM Intramuscular 08/09/2017 Adm inistered Influenza (Fluvirin) IM Intramuscular 09/12/2012 Administe red Influenza (Fluvirin) IM Intramuscular 08/30/2013 Administe red Influenza (Fluvirin) IM Intramuscular 09/05/2014 Administe red Influenza (Fluvirin) IM Intramuscular 08/27/2015 Administe red Influenza (Fluvirin) IM Intramuscular 09/03/2016 Administe red Pneumococcal IM Intramuscular 12/12/2014 Administered Pneumococcal IM Intramuscular 08/27/2020 Administered PROBLEMS Problem Type ICD Code Onset Dates Problem Status W/U Status Risk SNOMED Code Notes Problem Vitamin D deficiency (E55.9) Active confirmed 89711233 Problem Depression (F32.9) Active confirmed 354 23835 Problem Anxiety (F41.9) Active confirmed 137046 02 Problem Plantar wart of left foot (B07.0) Active confirmed [id number] Problem Nephrolithiasis (N20.0) Active confirmed 74232382 Problem Ventral hernia without obstruction or gangrene (K43.9) Active confirmed 543159652 Problem Primary insomnia (F51.01) Active confirmed Primary insomni a (9975152) Problem Mixed hyperlipidemia (E78.2) Active confirmed 137467931 Problem 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) Active confirmed 203537750 Problem Simple chronic bronchitis (J41.0) Active confirmed 56130570 Problem Major depressive disorder, recurrent, in full remission (F33.42) Active confirmed 08452935 Problem Essential hypertension (I10) Active confirmed 40121525 Problem Osteoarthritis of spine with radiculopathy, lumbar region (M47.26) Active confirmed 611230774 Problem Gastroesophageal reflux disease without esophagitis (K21.9) Active confirmed 705825435 Problem Primary osteoarthritis involving multiple joints (M15.0) Active confirmed 892932754 Problem Osteoarthritis of lumbar spine, unspecified spinal osteoarthritis complication status (M47.816) Active confirmed 675027366 Problem Iron deficiency anemia, unspecified iron deficiency anemia type (D50.9) Active confirmed 37491336 Problem Hallucinations (R44.3) Active confirmed 9558587 Problem Drug-induced constipation (K59.03) Active confirmed 31708331 Problem Type 2 diabetes mellitus without complication, without long-term current use of insulin (E11.9) Active confirmed 217661998 Problem Closed fracture of head of left humerus, initial encounter (S42.292A) Active confirmed 464854974 Problem Age-related osteoporosis with current pathological fracture, initial encounter (M80.00XA) Active confirmed 595403263 Problem COPD, 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 oxygen saturation walking 72 Blood pressure diastolic 64 mm Hg 07/25/2025 Height 62 in 07/25/2025 Blood pressure systolic 104 mm Hg 07/25/2025 Weight 156 lbs 07/25/2025 BMI 28.53 kg/m2 07/25/2025 Encounters Encounter Location Date Provider Diagnosis [address] [address] 08/02/[address] [address] 08/24/2024 Inderjit Reese Essential hypertensi on I10 ; Primary osteoarthritis involving multiple joints M15.0 ; Primary insomnia F51.01 ; Mixed simple and mucopurulent chronic bronchitis J41.8 ; Depression F32.9 ; Gastroesophageal reflux disease without esophagitis K21.9 ; Mixed hyperlipidemia E78.2 ; Drug-induced constipation K59.03 ; Anxiety F41.9 ; Folic acid deficiency E53.8 ; Low back pain, unspecified M54.50 ; Dermatitis L30.9 ; Vitamin D deficiency E55.9 and Encounter for immunization Z23 [address] [address] 08/25/[address] [address] 09/06/2024 Inderjit Reese Primary osteoarthrit is involving multiple joints M15.0 ; Osteoarthritis of spine with radiculopathy, lumbar region M47.26 ; Essential hypertension I10 ; Primary insomnia F51.01 ; Mixed simple and mucopurulent chronic bronchitis J41.8 ; Depression F32.9 ; Gastroesophageal reflux disease without esophagitis K21.9 ; Mixed hyperlipidemia E78.2 ; Drug-induced constipation K59.03 ; Anxiety F41.9 ; Folic acid deficiency E53.8 ; Dermatitis L30.9 and Vitamin D deficiency E55.[address] [address] 09/20/2024 Inderjit Reese Essential hypertensi on I10 ; Primary osteoarthritis involving multiple joints M15.0 ; Primary insomnia F51.01 ; Mixed simple and mucopurulent chronic bronchitis J41.8 ; Depression F32.9 ; Gastroesophageal reflux disease without esophagitis K21.9 ; Mixed hyperlipidemia E78.2 ; Drug-induced constipation K59.03 ; Anxiety F41.9 ; Folic acid deficiency E53.8 ; Low back pain, unspecified M54.50 ; Dermatitis L30.9 and Vitamin D deficiency E55.[address] [address] 09/21/2024 Inderjit Reese [address] [address] 09/28/2024 Inderjit Reese [address] [address] 10/16/2024 Inderjit Reese Shortness of breath R06.02 ; Hypoxemia R09.02 ; Primary osteoarthritis involving multiple joints M15.0 ; Essential hypertension I10 ; Primary insomnia F51.01 ; Mixed simple and mucopurulent chronic bronchitis J41.8 ; Depression F32.9 ; Gastroesophageal reflux disease without esophagitis K21.9 ; Mixed hyperlipidemia E78.2 ; Drug-induced constipation K59.03 ; Anxiety F41.9 ; Folic acid deficiency E53.8 ; Low back pain, unspecified M54.50 ; Dermatitis L30.9 and Vitamin D deficiency E55.[address] [address] 10/25/2024 Inderjit Reese Primary osteoarthrit is involving multiple joints M15.0 ; Iron deficiency anemia, unspecified iron deficiency anemia type D50.9 ; Essential hypertension I10 ; Primary insomnia F51.01 ; Depression F32.9 ; Gastroesophageal reflux disease without esophagitis K21.9 ; Mixed hyperlipidemia E78.2 ; Drug-induced constipation K59.03 ; Anxiety F41.9 ; Folic acid deficiency E53.8 ; Low back pain, unspecified M54.50 ; Dermatitis L30.9 ; Osteoarthritis of lumbar spine, unspecified spinal osteoarthritis complication status M47.816 ; COPD, 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 and Vitamin D deficiency E55.[address] [address] 10/25/[address] [address] 11/03/[address] [address] 11/20/2024 Inderjit Reese Iron deficiency anem ia, unspecified iron deficiency anemia type D50.[address] [address] 11/23/2024 Inderjit Reese Iron deficiency anem ia, unspecified iron deficiency anemia type D50.9 ; COPD, 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 ; Primary osteoarthritis involving multiple joints M15.0 ; Essential hypertension I10 ; Primary insomnia F51.01 ; Depression F32.9 ; Gastroesophageal reflux disease without esophagitis K21.9 ; Mixed hyperlipidemia E78.2 ; Drug-induced constipation K59.03 ; Anxiety F41.9 ; Folic acid deficiency E53.8 ; Low back pain, unspecified M54.50 ; Dermatitis L30.9 ; Osteoarthritis of lumbar spine, unspecified spinal osteoarthritis complication status M47.816 and Vitamin D deficiency E55.[address] [address] 12/22/2024 Inderjit Reese Iron deficiency anem ia, unspecified iron deficiency anemia type D50.9 ; COPD, 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 ; Primary osteoarthritis involving multiple joints M15.0 ; Essential hypertension I10 ; Primary insomnia F51.01 ; Depression F32.9 ; Gastroesophageal reflux disease without esophagitis K21.9 ; Mixed hyperlipidemia E78.2 ; Drug-induced constipation K59.03 ; Anxiety F41.9 ; Folic acid deficiency E53.8 ; Low back pain, unspecified M54.50 ; Dermatitis L30.9 ; Osteoarthritis of lumbar spine, unspecified spinal osteoarthritis complication status M47.816 and Vitamin D deficiency E55.[address] [address] 01/19/2025 Inderjit Reese Iron deficiency anem ia, unspecified iron deficiency anemia type D50.9 ; COPD, 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 ; Primary osteoarthritis involving multiple joints M15.0 ; Essential hypertension I10 ; Primary insomnia F51.01 ; Depression F32.9 ; Gastroesophageal reflux disease without esophagitis K21.9 ; Mixed hyperlipidemia E78.2 ; Drug-induced constipation K59.03 ; Anxiety F41.9 ; Folic acid deficiency E53.8 ; Low back pain, unspecified M54.50 ; Dermatitis L30.9 ; Osteoarthritis of lumbar spine, unspecified spinal osteoarthritis complication status M47.816 and Vitamin D deficiency E55.[address] [address] 02/16/2025 Inderjit Reese Essential hypertensi on I10 ; Hypervolemia, unspecified hypervolemia type E87.70 ; Iron deficiency anemia, unspecified iron deficiency anemia type D50.9 ; COPD, 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 ; Primary osteoarthritis involving multiple joints M15.0 ; Primary insomnia F51.01 ; Depression F32.9 ; Gastroesophageal reflux disease without esophagitis K21.9 ; Mixed hyperlipidemia E78.2 ; Drug-induced constipation K59.03 ; Anxiety F41.9 ; Folic acid deficiency E53.8 ; Low back pain, unspecified M54.50 ; Dermatitis L30.9 ; Osteoarthritis of lumbar spine, unspecified spinal osteoarthritis complication status M47.816 ; Vitamin D deficiency E55.9 and Encounter for screening mammogram for malignant neoplasm of breast Z12.[address] [address] 02/27/2025 Inderjit Reese [address] [address] 03/13/2025 Inderjit Reese Essential hypertensi on I10 ; Hypervolemia, unspecified hypervolemia type E87.70 ; Iron deficiency anemia, unspecified iron deficiency anemia type D50.9 ; COPD, 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 ; Primary osteoarthritis involving multiple joints M15.0 ; Primary insomnia F51.01 ; Depression F32.9 ; Gastroesophageal reflux disease without esophagitis K21.9 ; Mixed hyperlipidemia E78.2 ; Drug-induced constipation K59.03 ; Anxiety F41.9 ; Folic acid deficiency E53.8 ; Low back pain, unspecified M54.50 ; Dermatitis L30.9 ; Osteoarthritis of lumbar spine, unspecified spinal osteoarthritis complication status M47.816 and Vitamin D deficiency E55.[address] [address] 04/12/2025 Inderjit Reese Essential hypertensi on I10 ; Hypervolemia, unspecified hypervolemia type E87.70 ; Iron deficiency anemia, unspecified iron deficiency anemia type D50.9 ; COPD, 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 ; Primary osteoarthritis involving multiple joints M15.0 ; Primary insomnia F51.01 ; Depression F32.9 ; Gastroesophageal reflux disease without esophagitis K21.9 ; Mixed hyperlipidemia E78.2 ; Drug-induced constipation K59.03 ; Anxiety F41.9 ; Folic acid deficiency E53.8 ; Low back pain, unspecified M54.50 ; Dermatitis L30.9 ; Osteoarthritis of lumbar spine, unspecified spinal osteoarthritis complication status M47.816 and Vitamin D deficiency E55.9 [address] [address] 04/13/[address] [address] 04/17/[address] [address] 04/30/[address] [address] 04/30/[address] [address] 05/03/2025 Inderjit Reese Closed nondisplaced fracture of lateral epicondyle of right humerus with routine healing, unspecified fracture morphology, subsequent encounter S42.434D ; Essential hypertension I10 ; Hypervolemia, unspecified hypervolemia type E87.70 ; Iron deficiency anemia, unspecified iron deficiency anemia type D50.9 ; COPD, 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 ; Primary osteoarthritis involving multiple joints M15.0 ; Primary insomnia F51.01 ; Depression F32.9 ; Gastroesophageal reflux disease without esophagitis K21.9 ; Mixed hyperlipidemia E78.2 ; Drug-induced constipation K59.03 ; Anxiety F41.9 ; Folic acid deficiency E53.8 ; Low back pain, unspecified M54.50 ; Dermatitis L30.9 ; Osteoarthritis of lumbar spine, unspecified spinal osteoarthritis complication status M47.816 and Vitamin D deficiency E55.[address] [address] 05/07/2025 Inderjit Reese Depression F32.[address] [address] 05/18/2025 Inderjit Reese Essential hypertensi on I10 ; Iron deficiency anemia, unspecified iron deficiency anemia type D50.9 ; COPD, 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 ; Primary osteoarthritis involving multiple joints M15.0 ; Primary insomnia F51.01 ; Depression F32.9 ; Gastroesophageal reflux disease without esophagitis K21.9 ; Mixed hyperlipidemia E78.2 ; Anxiety F41.9 and Vitamin D deficiency E55.[address] [address] 06/15/2025 Inderjit Reese Essential hypertensi on I10 ; Iron deficiency anemia, unspecified iron deficiency anemia type D50.9 ; COPD, 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 ; Primary osteoarthritis involving multiple joints M15.0 ; Primary insomnia F51.01 ; Depression F32.9 ; Gastroesophageal reflux disease without esophagitis K21.9 ; Mixed hyperlipidemia E78.2 ; Anxiety F41.9 and Vitamin D deficiency E55.[address] [address] 07/12/2025 Inderjit Reese COPD, 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 ; Neuralgia M79.2 ; Muscle spasm M62.838 ; Primary osteoarthritis involving multiple joints M15.0 ; Essential hypertension I10 ; Primary insomnia F51.01 ; Depression F32.9 ; Gastroesophageal reflux disease without esophagitis K21.9 ; Mixed hyperlipidemia E78.2 ; Anxiety F41.9 ; Vitamin D deficiency E55.9 and Age-related osteoporosis with current pathological fracture, initial encounter M80.00XA [address] [address] 07/25/2025 Inderjit Reese Essential hypertensi on I10 [...] Treatment Notes Treatment Clinical Notes Section Notes 08/24/2024 Essential hypertension (ICD-10 - I10) 09/06/2024 Osteoarthritis of spine with radiculopathy, lumbar region (ICD-10 - M47.26) 01/19/2025 Iron deficiency anemia, unspecified iron deficiency anemia type (ICD-10 - D50.9) 02/16/2025 Essential hypertension (ICD-10 - I10) 02/16/2025 Hypervolemia, unspecified hypervolemia type (ICD-10 - E87.70) 03/13/2025 Essential hypertension (ICD-10 - I10) 03/13/2025 Hypervolemia, unspecified hypervolemia type (ICD-10 - E87.70) 04/12/2025 Essential hypertension (ICD-10 - I10) 04/12/2025 Hypervolemia, unspecified hypervolemia type (ICD-10 - E87.70) 05/03/2025 Essential hypertension (ICD-10 - I10) 05/03/2025 Closed nondisplaced fracture of lateral epicondyle of right humerus with routine healing, unspecified fracture morphology, subsequent encounter (ICD-10 - S42.434D) 05/07/2025 Depression (ICD-10 - F32.9) 05/18/2025 Essential hypertension (ICD-10 - I10) 05/18/2025 Iron deficiency anemia, unspecified iron deficiency anemia type (ICD-10 - D50.9) 06/15/2025 Essential hypertension (ICD-10 - I10) 06/15/2025 Iron deficiency anemia, unspecified iron deficiency anemia type (ICD-10 - D50.9) 07/12/2025 Neuralgia (ICD-10 - M79.2) 07/12/2025 COPD, severe (ICD-10 - J44.9) 07/25/2025 Essential hypertension (ICD-10 - I10) Patient's blood pressures in the low side. I advised the patient to hold amlodipine and to have blood pressure goes back to normal. 07/25/2025 Hallucinations (ICD-10 - R44.3) 10/16/2024 Shortness of breath (ICD-10 - R06.02) Patient was sent to emergency room for urgent CT anterior chest to rule out pulmonary embolus 10/16/2024 Hypoxemia (ICD-10 - R09.02) 09/20/2024 Essential hypertension (ICD-10 - I10) 10/25/2024 Primary osteoarthritis involving multiple joints (ICD-10 - [...] to fill the prescription in lesser amount. [place] [facility] verified. 10/25/2024 Iron deficiency anemia, unspecified iron deficiency anemia type (ICD-10 - D50.9) 11/20/2024 Iron deficiency anemia, unspecified iron deficiency anemia type (ICD-10 - D50.9) 11/23/2024 Iron deficiency anemia, unspecified iron deficiency anemia type (ICD-10 - D50.9) 11/23/2024 COPD, severe (ICD-10 - J44.9) 09/06/2024 Primary osteoarthritis involving multiple joints (ICD-10 - [...] to fill the prescription in lesser amount. [facility] verified. 12/22/2024 Iron deficiency anemia, unspecified iron deficiency anemia type (ICD-10 - D50.9) 08/24/2024 Primary insomnia (ICD-10 - F51.01) 08/24/2024 Primary osteoarthritis involving multiple joints (ICD-10 - [...] to fill the prescription in lesser amount. [facility] verified. 09/06/2024 Essential hypertension (ICD-10 - I10) 09/20/2024 Primary insomnia (ICD-10 - F51.01) 09/20/2024 Primary osteoarthritis involving multiple joints (ICD-10 - M15.0) In accordance with Chapter 52 - Acts of 2015, '' An Act Relative to Substance Use [...] to fill the prescription in lesser amount. [facility] verified. 10/16/2024 Primary osteoarthritis involving multiple joints (ICD-10 - M15.0) In accordance with Chapter [place] - Acts [place] 2015, '' An Act Relative to Substance Use [...] to fill the prescription in lesser amount. [facility] verified. 10/25/2024 Essential hypertension (ICD-10 - I10) 11/23/2024 Primary osteoarthritis involving multiple joints (ICD-10 - M15.0) In accordance with Chapter 52 - Acts of 2015, '' An Act Relative to Substance Use [...] to fill the prescription in lesser amount. [facility] verified. 12/22/2024 Primary osteoarthritis involving multiple joints (ICD-10 - [...] to fill the prescription in lesser amount. [facility] verified. 12/22/2024 COPD, severe (ICD-10 - J44.9) 01/19/2025 Primary osteoarthritis involving multiple joints (ICD-10 - [...] to fill the prescription in lesser amount. [facility] verified. 01/19/2025 COPD, severe (ICD-10 - J44.9) 02/16/2025 Iron deficiency anemia, unspecified iron deficiency anemia type (ICD-10 - D50.9) 03/13/2025 Iron deficiency anemia, unspecified iron deficiency anemia type (ICD-10 - D50.9) 04/12/2025 Iron deficiency anemia, unspecified iron deficiency anemia type (ICD-10 - D50.9) 05/03/2025 Hypervolemia, unspecified hypervolemia type (ICD-10 - E87.70) 05/18/2025 COPD, severe (ICD-10 - J44.9) 06/15/2025 COPD, severe (ICD-10 - J44.9) 07/12/2025 Muscle spasm (ICD-10 - M62.838) 07/25/2025 Iron deficiency anemia, unspecified iron deficiency anemia type (ICD-10 - D50.9) 03/13/2025 COPD, severe (ICD-10 - J44.9) 02/16/2025 COPD, severe (ICD-10 - J44.9) 01/19/2025 Essential hypertension (ICD-10 - I10) 12/22/2024 Essential hypertension (ICD-10 - I10) 11/23/2024 Essential hypertension (ICD-10 - I10) 10/25/2024 Primary insomnia (ICD-10 - F51.01) 10/16/2024 Essential hypertension (ICD-10 - I10) 09/20/2024 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 [place] PAT verified. 06/15/2025 Primary osteoarthritis involving multiple joints (ICD-10 [...] to fill the prescription in lesser amount. [facility] verified. 05/18/2025 Primary osteoarthritis involving multiple joints (ICD-10 [...] to fill the prescription in lesser amount. [facility] verified. 05/03/2025 Iron deficiency anemia, unspecified iron deficiency anemia type (ICD-10 - D50.9) 04/12/2025 COPD, severe (ICD-10 - J44.9) 04/12/2025 Primary osteoarthritis involving multiple joints (ICD-10 - M15.0) In accordance with Chapter 52 - Acts of 2015, '' An Act Relative to Substance Use [...] to fill the prescription in lesser amount. [facility] verified. 03/13/2025 Primary osteoarthritis involving multiple joints (ICD-10 - [...] to fill the prescription in lesser amount. [facility] verified. 07/25/2025 Primary osteoarthritis involving multiple joints (ICD-10 [...] to fill the prescription in lesser amount. [facility] verified. 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 [facility] verified. 07/12/2025 Essential hypertension (ICD-10 - I10) 09/20/2024 Depression (ICD-10 - F32.9) 01/19/2025 Primary insomnia (ICD-10 - F51.01) 10/16/2024 Primary insomnia (ICD-10 - F51.01) 06/15/2025 Primary insomnia (ICD-10 - F51.01) 05/03/2025 COPD, severe (ICD-10 - J44.9) 11/23/2024 Primary insomnia (ICD-10 - F51.01) 12/22/2024 Primary insomnia (ICD-10 - F51.01) 05/18/2025 Primary insomnia (ICD-10 - F51.01) 08/24/2024 Depression (ICD-10 - F32.9) 09/06/2024 Depression (ICD-10 - F32.9) 08/24/2024 Gastroesophageal reflux disease without esophagitis (ICD-10 - K21.9) 02/16/2025 Primary insomnia (ICD-10 - F51.01) 03/13/2025 Primary insomnia (ICD-10 - F51.01) 04/12/2025 Primary insomnia (ICD-10 - F51.01) 05/03/2025 Primary osteoarthritis involving multiple joints (ICD-10 - [...] prescription in lesser amount. [place] PAT verified. 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) 11/23/2024 Depression (ICD-10 - F32.9) 09/20/2024 Gastroesophageal reflux disease without esophagitis (ICD-10 - K21.9) 12/22/2024 Depression (ICD-10 - F32.9) 01/19/2025 Depression (ICD-10 - F32.9) 05/18/2025 Gastroesophageal reflux disease without esophagitis (ICD-10 - K21.9) 05/03/2025 Primary insomnia (ICD-10 - F51.01) 08/24/2024 Mixed hyperlipidemia (ICD-10 - E78.2) 04/12/2025 Depression (ICD-10 - F32.9) 09/06/2024 Gastroesophageal reflux disease without esophagitis (ICD-10 - K21.9) 09/20/2024 Mixed hyperlipidemia (ICD-10 - E78.2) 03/13/2025 Depression (ICD-10 - F32.9) 10/16/2024 Depression (ICD-10 - F32.9) 10/25/2024 Gastroesophageal reflux disease without esophagitis (ICD-10 - K21.9) 02/16/2025 Depression (ICD-10 - F32.9) 01/19/2025 Gastroesophageal reflux disease without esophagitis (ICD-10 - K21.9) 11/23/2024 Gastroesophageal reflux disease without esophagitis (ICD-10 - K21.9) 12/22/2024 Gastroesophageal reflux disease without esophagitis (ICD-10 - K21.9) 07/25/2025 Depression (ICD-10 - F32.9) 07/12/2025 Depression (ICD-10 - F32.9) 06/15/2025 Gastroesophageal reflux disease without esophagitis (ICD-10 - K21.9) 02/16/2025 Gastroesophageal reflux disease without esophagitis (ICD-10 - K21.9) 07/25/2025 Gastroesophageal reflux disease without esophagitis (ICD-10 - K21.9) 03/13/2025 Gastroesophageal reflux disease without esophagitis (ICD-10 - K21.9) 07/12/2025 Gastroesophageal reflux disease without esophagitis (ICD-10 - K21.9) 04/12/2025 Gastroesophageal reflux disease without esophagitis (ICD-10 - K21.9) 06/15/2025 Mixed hyperlipidemia (ICD-10 - E78.2) 05/03/2025 Depression (ICD-10 - F32.9) 05/18/2025 Mixed hyperlipidemia (ICD-10 - E78.2) 08/24/2024 Drug-induced constipation (ICD-10 - K59.03) 09/06/2024 Mixed hyperlipidemia (ICD-10 - E78.2) 09/20/2024 Drug-induced constipation (ICD-10 - K59.03) 10/16/2024 Gastroesophageal reflux disease without esophagitis (ICD-10 - K21.9) 10/25/2024 Mixed hyperlipidemia (ICD-10 - E78.2) 11/23/2024 Mixed hyperlipidemia (ICD-10 - E78.2) 12/22/2024 Mixed hyperlipidemia (ICD-10 - E78.2) 01/19/2025 Mixed hyperlipidemia (ICD-10 - E78.2) 02/16/2025 Mixed hyperlipidemia (ICD-10 - E78.2) 11/23/2024 Drug-induced constipation (ICD-10 - K59.03) 01/19/2025 Drug-induced constipation (ICD-10 - K59.03) 12/22/2024 Drug-induced constipation (ICD-10 - K59.03) 08/24/2024 Anxiety (ICD-10 - F41.9) 09/06/2024 Drug-induced constipation (ICD-10 - K59.03) 09/20/2024 Anxiety (ICD-10 - F41.9) 10/16/2024 Mixed hyperlipidemia (ICD-10 - E78.2) 10/25/2024 Drug-induced constipation (ICD-10 - K59.03) 04/12/2025 Mixed hyperlipidemia (ICD-10 - E78.2) 05/03/2025 Gastroesophageal reflux disease without esophagitis (ICD-10 - K21.9) 05/18/2025 Anxiety (ICD-10 - F41.9) 06/15/2025 Anxiety (ICD-10 - F41.9) 07/12/2025 Mixed hyperlipidemia (ICD-10 - E78.2) 07/25/2025 Mixed hyperlipidemia (ICD-10 - E78.2) 03/13/2025 Mixed hyperlipidemia (ICD-10 - E78.2) 07/12/2025 Anxiety (ICD-10 - F41.9) 09/20/2024 Folic acid deficiency (ICD-10 - E53.8) 10/16/2024 Drug-induced constipation (ICD-10 - K59.03) 06/15/2025 Vitamin D deficiency (ICD-10 - E55.9) 09/06/2024 Anxiety (ICD-10 - F41.9) 08/24/2024 Folic acid deficiency (ICD-10 - E53.8) 07/25/2025 Anxiety (ICD-10 - F41.9) 02/16/2025 Drug-induced constipation (ICD-10 - K59.03) 03/13/2025 Drug-induced constipation (ICD-10 - K59.03) 12/22/2024 Anxiety (ICD-10 - F41.9) 04/12/2025 Drug-induced constipation (ICD-10 - K59.03) 05/03/2025 Mixed hyperlipidemia (ICD-10 - E78.2) 11/23/2024 Anxiety (ICD-10 - F41.9) 10/25/2024 Anxiety (ICD-10 - F41.9) 05/18/2025 Vitamin D deficiency (ICD-10 - E55.9) 01/19/2025 Anxiety (ICD-10 - F41.9) 04/12/2025 Anxiety (ICD-10 - F41.9) 12/22/2024 Folic acid deficiency (ICD-10 - E53.8) 01/19/2025 Folic acid deficiency (ICD-10 - E53.8) 07/25/2025 Vitamin D deficiency (ICD-10 - E55.9) 10/16/2024 Anxiety (ICD-10 - F41.9) 08/24/2024 Low back pain, unspecified (ICD-10 - M54.50) 10/25/2024 Folic acid deficiency (ICD-10 - E53.8) 07/12/2025 Vitamin D deficiency (ICD-10 - E55.9) 11/23/2024 Folic acid deficiency (ICD-10 - E53.8) 09/20/2024 Low back pain, unspecified (ICD-10 - M54.50) 03/13/2025 Anxiety (ICD-10 - F41.9) 09/06/2024 Folic acid deficiency (ICD-10 - E53.8) 02/16/2025 Anxiety (ICD-10 - F41.9) 05/03/2025 Drug-induced constipation (ICD-10 - K59.03) 02/16/2025 Folic acid deficiency (ICD-10 - E53.8) 01/19/2025 Low back pain, unspecified (ICD-10 - M54.50) 12/22/2024 Low back pain, unspecified (ICD-10 - M54.50) 03/13/2025 Folic acid deficiency (ICD-10 - E53.8) 04/12/2025 Folic acid deficiency (ICD-10 - E53.8) 05/03/2025 Anxiety (ICD-10 - F41.9) 07/12/2025 Age-related osteoporosis with current pathological fracture, initial encounter (ICD-10 - M80.00XA) 10/16/2024 Folic acid deficiency (ICD-10 - E53.8) 09/20/2024 Dermatitis (ICD-10 - L30.9) 10/25/2024 Low back pain, unspecified (ICD-10 - M54.50) 09/06/2024 Dermatitis (ICD-10 - L30.9) 08/24/2024 Dermatitis (ICD-10 - L30.9) 11/23/2024 Low back pain, unspecified (ICD-10 - M54.50) 04/12/2025 Low back pain, unspecified (ICD-10 - M54.50) 05/03/2025 Folic acid deficiency (ICD-10 - E53.8) 09/20/2024 Vitamin D deficiency (ICD-10 - E55.9) 08/24/2024 Vitamin D deficiency (ICD-10 - E55.9) 09/06/2024 Vitamin D deficiency (ICD-10 - E55.9) 01/19/2025 Dermatitis (ICD-10 - L30.9) 10/16/2024 Low back pain, unspecified (ICD-10 - M54.50) 12/22/2024 Dermatitis (ICD-10 - L30.9) 03/13/2025 Low back pain, unspecified (ICD-10 - M54.50) 10/25/2024 Dermatitis (ICD-10 - L30.9) 11/23/2024 Dermatitis (ICD-10 - L30.9) 02/16/2025 Low back pain, unspecified (ICD-10 - M54.50) 12/22/2024 Osteoarthritis of lumbar spine, unspecified spinal osteoarthritis complication status (ICD-10 - M47.816) 01/19/2025 Osteoarthritis of lumbar spine, unspecified spinal osteoarthritis complication status (ICD-10 - M47.816) 02/16/2025 Dermatitis (ICD-10 - L30.9) 08/24/2024 Encounter for immunization (ICD-10 - Z23) 11/23/2024 Osteoarthritis of lumbar spine, unspecified spinal osteoarthritis complication status (ICD-10 - M47.816) 03/13/2025 Dermatitis (ICD-10 - L30.9) 10/25/2024 Osteoarthritis of lumbar spine, unspecified spinal osteoarthritis complication status (ICD-10 - M47.816) 05/03/2025 Low back pain, unspecified (ICD-10 - M54.50) 04/12/2025 Dermatitis (ICD-10 - L30.9) 10/16/2024 Dermatitis (ICD-10 - L30.9) 11/23/2024 Vitamin D deficiency (ICD-10 - E55.9) 02/16/2025 Osteoarthritis of lumbar spine, unspecified spinal osteoarthritis complication status (ICD-10 - M47.816) 10/25/2024 COPD, severe (ICD-10 - J44.9) 03/13/2025 Osteoarthritis of lumbar spine, unspecified spinal osteoarthritis complication status (ICD-10 - M47.816) 12/22/2024 Vitamin D deficiency (ICD-10 - E55.9) 05/03/2025 Dermatitis (ICD-10 - L30.9) 10/16/2024 Vitamin D deficiency (ICD-10 - E55.9) 04/12/2025 Osteoarthritis of lumbar spine, unspecified spinal osteoarthritis complication status (ICD-10 - M47.816) 01/19/2025 Vitamin D deficiency (ICD-10 - E55.9) 03/13/2025 Vitamin D deficiency (ICD-10 - E55.9) 02/16/2025 Vitamin D deficiency (ICD-10 - E55.9) 04/12/2025 Vitamin D deficiency (ICD-10 - E55.9) 10/25/2024 Vitamin D deficiency (ICD-10 - E55.9) 05/03/2025 Osteoarthritis of lumbar spine, unspecified spinal osteoarthritis complication status (ICD-10 - M47.816) 02/16/2025 Encounter for screening mammogram for malignant neoplasm of breast (ICD-10 - Z12.31) 05/03/2025 Vitamin D deficiency (ICD-10 - E55.9) 07/12/2025 Other This chart has been transcribed by a computerized dictation system. There are likely to be multiple sugar cane planter inaccuracies despite chart review. 08/24/2024 Other This chart has been transcribed by a computerized dictation system. There are likely to be multiple sugar cane planter inaccuracies despite chart review. 09/20/2024 Other This chart has been transcribed by a computerized dictation system. There are likely to be multiple sugar cane planter inaccuracies despite chart review. 10/16/2024 Other This chart has been transcribed by a computerized dictation system. There are likely to be multiple sugar cane planter inaccuracies despite chart review. 10/25/2024 Other This chart has been transcribed by a computerized dictation system. There are likely to be multiple sugar cane planter inaccuracies despite chart review. 11/23/2024 Other This chart has been transcribed by a computerized dictation system. There are likely to be multiple sugar cane planter inaccuracies despite chart review. 12/22/2024 Other This chart has been transcribed by a computerized dictation system. There are likely to be multiple sugar cane planter inaccuracies despite chart review. 01/19/2025 Other This chart has been transcribed by a computerized dictation system. There are likely to be multiple sugar cane planter inaccuracies despite chart review. 02/16/2025 Other This chart has been transcribed by a computerized dictation system. There are likely to be multiple sugar cane planter inaccuracies despite chart review. 03/13/2025 Other This chart has been transcribed by a computerized dictation system. There are likely to be multiple sugar cane planter inaccuracies despite chart review. 04/12/2025 Other This chart has been transcribed by a computerized dictation system. There are likely to be multiple sugar cane planter inaccuracies despite chart review. 05/18/2025 Other This chart has been transcribed by a computerized dictation system. There are likely to be multiple sugar cane planter inaccuracies despite chart review. 06/15/2025 Other This chart has been transcribed by a computerized dictation system. There are likely to be multiple sugar cane planter inaccuracies despite chart review. 09/06/2024 Other This chart has been transcribed by a computerized dictation system. There are likely to be multiple sugar cane planter inaccuracies despite chart review. This chart has been transcribed by a computerized dictation system. There are likely to be multiple sugar cane planter inaccuracies despite chart review. 05/03/2025 Other This chart has been transcribed by a computerized dictation system. There are likely to be multiple sugar cane planter inaccuracies despite chart review. This chart has been transcribed by a computerized dictation system. There are likely to be multiple sugar cane planter inaccuracies despite chart review. 07/25/2025 Other This chart has been transcribed by a computerized dictation system. There are likely to be multiple sugar cane planter inaccuracies despite chart review. This chart has been transcribed by a computerized dictation system. There are likely to be multiple sugar cane planter inaccuracies despite chart review. PLAN OF TREATMENT Pending Test Test Name Order Date MRI : Lumbosacral Spines 09/06/2024 X ray : Shoulder, left 12/04/2019 MAMMOGRAM, SCREENING 11/06/2019 MAMMOGRAM, SCREENING 02/16/2025 MAMMOGRAM, SCREENING 03/06/2014 MAMMOGRAM, SCREENING 03/11/2018 MAMMOGRAM, SCREENING 09/03/2016 Bone Density 09/03/2016 Bone Density 07/12/2025 Bone Density 2022 Bone Density 01/18/2013 Bone Density 03/11/2018 Bone Density 11/06/2019 CT Abdomen and Pelvis 02/17/2017 Ultrasound : Doppler : Veins Leg Right 0 01/17/2019 GUAIAC, SINGLE SPECIMEN 11/28/2012 *EKG 11/28/2012 *SPIROMETRY 09/12/2012 Thin Prep 11/28/2012 Stress Echo 11/20/2013 Urinalysis with Urine Culture and Sensit ivity 02/20/2014 CANNABINOIDS, URINE SCREEN WITH CONFIRMA TION 03/03/2018 OXYCODONE, URINE SCREEN WITH CONFIRMATIO N 03/03/2018 BASIC METABOLIC PANEL 04/21/2016 COMPREHENSIVE METABOLIC PANL 05/10/2015 COMPREHENSIVE METABOLIC PANL 03/18/2017 LIPID PANEL 03/18/2017 LIPID PANEL 09/06/2017 LIPID PANEL 05/10/2015 LIPID PANEL 05/27/2015 LIPID PANEL 05/05/2016 LIPID PANEL 09/30/2016 LIPID PANEL 09/05/2014 LIPID PANEL 12/31/2015 LIPID PANEL 04/21/2016 HEPATIC FUNCTION PANEL 04/21/2016 HEPATIC FUNCTION PANEL 12/31/2015 HEPATIC FUNCTION PANEL 09/05/2014 HEPATIC FUNCTION PANEL 09/30/2016 HEPATIC FUNCTION PANEL 05/05/2016 HEPATIC FUNCTION PANEL 05/27/2015 HEPATIC FUNCTION PANEL 09/06/2017 THYROID PANEL 03/03/2018 THYROID PANEL 05/10/2015 THYROID PANEL 04/21/2016 25OH VITAMIN D 04/21/2016 25OH VITAMIN D 05/10/2015 25OH VITAMIN D 05/27/2015 25OH VITAMIN D 03/18/2017 COMPLETE CBC WITH DIFF 05/10/2015 COMPLETE CBC WITH DIFF 04/21/2016 URINE DIPSTICK 05/10/2015 COMPLETE URINALYSIS 04/21/2016 COMPLETE URINALYSIS 03/03/2018 Cryo Liquid Nitrogen 10/30/2021 CT Chest LDCT Lung Screening 05/14/2023 25OH VITAMIN D 01/07/2022 25OH VITAMIN D 09/30/2023 B-TYPE NATRIURETIC PEPTIDE (BNP) 023 CBC (COMPLETE BLOOD COUNT) WITH DIFF 07/2023 COMPREHENSIVE METABOLIC PANEL 09/30/2023 COMPREHENSIVE METABOLIC PANEL 01/07/2022 COMPREHENSIVE METABOLIC PANEL 08/25/2022 FOLIC ACID 09/30/2023 HEPATIC FUNCTION PANEL 01/18/2023 HEPATIC FUNCTION PANEL 03/19/2023 LIPID PANEL 03/19/2023 LIPID PANEL 01/18/2023 LIPID PANEL 01/07/2022 LIPID PANEL 08/25/2022 LIPID PANEL 09/30/2023 THYROID PANEL (TSH, FT4) 09/30/2023 URINALYSIS, COMPLETE 09/30/2023 VITAMIN B12 09/30/2023 Next Appt Details Provider Name:Inderjit rivera, 08/17/2025 02:45:00 PM, [address] [place] [address], [phone], Insurance Providers Payer Name Payer Address Payer Phone Subscriber Number Group Number Insured Name Patient Relationship to Insured Coverage Start Date Coverage End Date [facility] [address] [place] [address] [id number] Jo Ann Baez Self - patient is the insured MEDICAL (GENERAL) HISTORY Medical History History ICD Code Essential hypertension I10 Mixed hyperlipidemia E78.2 Primary osteoarthritis involving multipl e joints M15.0 Anxiety F41.9 Depression F32.9 Simple chronic bronchitis J41.0 Gastroesophageal reflux disease without esophagitis K21.9 Vitamin D deficiency E55.9 Nephrolithiasis N20.0 Ventral hernia without obstruction or ga ngrene K43.9 Drug-induced constipation K59.03 Primary insomnia F51.01 Type 2 diabetes mellitus wit hout complication, without long-term current use of insulin E11.9 Closed fracture of head of left humerus, initial encounter S42.292A Plantar wart of left foot B07.0 Major depressive disorder, recurrent, in full remission F33.42 Mixed simple and mucopurulent chronic br onchitis J41.8 Osteoarthritis of spine with radiculopat hy, lumbar region M47.26 Iron deficiency anemia, unspecified iron deficiency anemia type D50.9 Osteoarthritis of lumbar spi ne, unspecified spinal osteoarthritis complication status M47.816 COPD, 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
--- OUTSIDE RECORDS SUMMARY | 2025-07-29 19:26 | XMS_ITS | Clinical Summary ---
Author Organization [facility] Address [address] [place] [address] Care Team Providers Care Ethnographer Name Role Phone Inderjit Reese Primary Care Provider [phone] Allergies Active Allergy Reactions Criticality Noted Date Comments Iodinated Contrast Media Hives 01/29/2025 Levofloxacin Rash 01/29/2025 Medications omeprazole OTC (PriLOSEC OTC) 20 mg EC tablet Take 20 mg by mouth once a day. Active furosemide (LASIX) 40 mg tablet Take 40 mg by mouth once a day. Active amLODIPine (NORVASC) 5 mg tablet Take 5 mg by mouth once a day. Active vitamin D3 25 mcg (1,000 unit) capsule Take 1 capsule by mouth once a day. Active aspirin 81 mg EC tablet Take 81 mg by mouth once a day. Active rosuvastatin (CRESTOR) 20 mg tablet Take 20 mg by mouth once a day. Active oxyCODONE-aceta minophen (PERCOCET) 5-325 mg tablet Take 1 tablet by mouth every 6 hours as needed for pain. Active ferrous gluconate (FERGON) 324 mg (37.5 mg iron) tablet tablet Take 324 mg by mouth daily with breakfast. Active DULoxetine DR (CYMBALTA) 60 mg capsule Take 60 mg by mouth once a day. Active traZODone (DESYREL) 150 mg tablet Take 225 mg by mouth nightly. Active albuterol 2.5 mg/3 mL (0.083%) nebulizer solution Inhale 1 vial via nebulizer every 6 hours as needed for wheezing or shortness of breath. Active Social History Tobacco Use Types Packs/Day Years Used Date Smoking Tobacco: Former Cigarettes 0.5 49 1 966 - 2015 Smokeless Tobacco: Never Tobacco Cessation:Counseling Given: Not Answered Alcohol Use Standard Drinks/Week Comments Never 0 (1 standard drink = 0.6 oz pur e alcohol) Comments Unknown Sex and Gender Information Value Date Recorded Sex Assigned at Female 01/29/2025 2:08 PM EDT Legal Sex Female 1:09 AM EDT Gender Identity Not on file Sexual Orientation Not on file Last Filed Vital Signs Vital Sign Reading Time Taken Comments Blood Pressure 115/47 01/29/2025 12:16 PM EDT Pulse 80 01/29/2025 12:16 PM EDT Temperature 36.3 C (97.3 F) 01/29/2025 9:49 AM EDT Respiratory Rate 16 01/29/2025 12:16 PM EDT Oxygen Saturation 94% 01/29/2025 12:16 PM EDT Inhaled Oxygen Concentration - - Weight 72.6 kg (160 lb) 01/29/2025 9:49 AM EDT Height 152.4 cm (5') 01/29/2025 9:49 AM EDT Body Mass Index 31.25 01/29/2025 9:49 AM EDT Plan of Treatment Health Maintenance Due Date Last Done Comments Cologuard 1950 FOBT / Fit Test [address] Lung Cancer Screening (Baseline) 2000 Osteoporosis Screening 2000 Zoster Vaccines (1 of 2) 2000 DTaP,Tdap,and Td Vaccines (2 - Td or Tdap) 01/22/2020 01/21/2010, 08/10/2001, 08/11/2000 Pneumococcal Vaccine: 50+ Years (2 of 2 - PCV) 08/27/2021 08/27/2020, 09/23/2009 Alcohol/Substance Use Screening 11/22/2024 Health Care Proxy Review 11/22/2024 COVID-19 Vaccine ( - season) 2025 12/11/2021, 04/01/2021, 03/11/2021 Influenza Vaccine (#1) 2025 , 08/10/2019, 08/25/2018, Additional history exists RSV Vaccine (60+ years old and patients) (1 - 1-dose 75+ series) 2025 Colon Cancer Screening 01/29/2035 Colonoscopy 01/29/2035 01/29/2025, 01/29/2025 Hepatitis B Vaccines Aged Out No long er eligible based on patient's age to complete this topic Procedures * Due to [place] [employer] law, this organization might not be sharing negative HIV tests. Procedure Name Priority Date/Time Associated Diagnosis Comments COLONOSCOPY 01/29/2025 from Last 3 Months or Most Recently Relevant to Health Maintenance Results * Due to [place] [employer] law, this organization might not be sharing negative HIV tests. * COLONOSCOPY (01/29/2025) Narrative Procedure Note Hien Butts MD - 01/29/2025 11:21 AM EDT [facility] Patient Name: Jo Ann Baez Procedure Date: 01/29/2025 11:21 AM Date of : 1950 Admit Type: Outpatient Age: 74 Room: GI PROCEDURE Gender: Female Note Status: Finalized Attending MD: Hien Butts MD Procedure: Colonoscopy Indications: Iron deficiency anemia Comorbidities Providers: Hien Butts MD Referring MD: Inderjit Reese MD (Referring MD) Requesting Provider: Medicines: Monitored Anesthesia Care Complications: No immediate complications. Estimated Blood Loss: Estimated blood loss: none. Procedure: After I obtained informed consent, the scope was passed under direct vision. Throughout theprocedure, the patient's blood pressure, pulse, and oxygen saturations were monitored continuously. The Colonoscope was introduced through the anus and advanced to the cecum, identified by appendiceal orifice and ileocecal valve. The colonoscopy was performed without difficulty. Findings: The perianal and digital rectal examinations were normal. A 4 mm polyp was found in the rectum. The polyp was sessile. Thepolyp was removed with a cold biopsy forceps. Resection and retrieval were complete. Non-bleeding internal hemorrhoids were found during retroflexion. The hemorrhoids were medium-sized and Grade I (internal hemorrhoids thatdo not prolapse). Impression: - One 4 mm polyp in the rectum, removed with a cold biopsy forceps. Resected and retrieved. - Non-bleeding internal hemorrhoids. Recommendation: - Await pathology results. - Return to my office in 4 weeks. Hien Butts MD 01/29/2025 11:43:24 AM Number of Addenda: 0 Note Initiated On: 01/29/2025 11:21 AM Hien Butts MD PROVATION PROCEDURES Final Resul t from Last 3 Months or Most Recently Relevant to Health Maintenance Insurance [facility] [employer] PPO Care Teams Ethnographer Relationship Specialty Start Date End Date Inderjit Reese [address] [place] [address] PCP - General Internal Medicine 01/29/25
--- OUTSIDE RECORDS SUMMARY | 2025-07-29 19:26 | XMS_ITS | Clinical Summary ---
Author Organization [facility] Address [address] [place] [address] Care Team Providers Care Physician Gynecologist Name Role Phone Unknown Pcp, Non Rmg Primary Care Provider Unava ilable Allergies No known active allergies Medications TRIAMCINOLONE ACETONIDE 0.5 % EX CREA APPLY BID 1 TUBE 2 01/14/2007 Active VICODIN 5-500 MG OR TABS 1 TABLET EVERY 4 TO 6 HOURS NEEDED 28 1 01/14/2007 Active CLOBETASOL PROPIONATE 0.05 % EX OINT APPLY BID 1 TUBE SMALL 0 05/24/2007 Active LORAZEPAM 1 MG OR TABS 1 TABLET THREE TIMES A DAY NEEDED 30 2 07/04/2007 Active Active Problems Problem Noted Date Diagnosed Date Hypertension 01/20/2007 Overview (03/29/2015): 05/22/1999 Marbella TINOCO PA-C Hyperlipidemia 01/14/2007 Overview (05/24/2007): 01/13/2006 Benny GONZALEZ M.D. Immunizations Immunization Administration Dates Next Due Influenza,seasonal,trivalent ,preservative (FLUZONE MDV) 11/13/2003 Td (adult), adsorbed 08/10/2001,08/11/2000 Family History Medical History Relation Name Comments Heart Disorder Father [place] Other Other cerebral aneury sm-2 unspecified Relation Name Status Comments Brother 1 #1 of 3 MVA Brother 2 cerebral aneury sm Father Mother (Age 76) CVA Other Sister #1 of 8 Social History Tobacco Use Types Packs/Day Years Used Date Smoking Tobacco: Former Cigarettes 1 5 0 02/28/2002 - 02/28/2007 Alcohol Use Standard Drinks/Week Comments No 0 (1 standard drink = 0.6 oz pur e alcohol) Comments No Sex and Gender Information Value Date Recorded Sex Assigned at Not on file Legal Sex Female 5:58 PM EDT Gender Identity Not on file Sexual Orientation Not on file Last Filed Vital Signs Vital Sign Reading Time Taken Comments Blood Pressure 118/60 07/04/2007 3:42 PM EDT Pulse 80 07/04/2007 3:42 PM EDT Temperature 37 C (98.6 F) 07/04/2007 3:42 PM EDT Respiratory Rate 5 07/04/2007 3:42 PM EDT Oxygen Saturation - - Inhaled Oxygen Concentration - - Weight 89.4 kg (197 lb) 05/24/2007 9:21 AM EDT Height 160 cm (5' 3 ) 07/04/2007 3:42 PM EDT Body Mass Index 36.03 05/24/2007 9:21 AM EDT Plan of Treatment Health Maintenance Due Date Last Done Comments Pneumococcal 50+ years (1 of 1 - PCV) 2000 Zoster (Shingrix) (1 of 2) 2000 DTaP/Tdap/Td (1 - Tdap) 08/11/2001 08/10/2001, 08/11 Mammogram/Breast Imaging 01/28/2006 005, 09/27/2002, 03/16/2002, Additional history exists Bone Density 2015 COVID-19 Vaccine ( season) 2025 Influenza (#1) 2025 11/13/2003 RSV (1 - 1-dose 75+ series) 2025 Hepatitis C Screening Completed 08/25/2001 Pap Smear Discontinued 01/14/2007, 12/24, 12/12/2004, Additional history exists HPV Vaccine (No Doses Required) Completed Hep A Aged Out No longer eligi ble based on patient's age to complete this topic Hep B Aged Out No longer eligi ble based on patient's age to complete this topic Hib Aged Out No longer eligi ble based on patient's age to complete this topic Meningococcal ACWY Aged Out No longer eligible based on patient's age to complete this topic Zoster (Zostavax) Discontinued Procedures * Due to [place] state law, this organization might not be sharing negative HIV tests. Procedure Name Priority Date/Time Associated Diagnosis Comments THIN PREP PAP TEST WITH HUMAN PAPILLOMAVIRUS (HPV) DNA, HIGH Routine 01/14/2007 SCREENING MAMMOGRAPHY BILATERAL (TWO VIEW FILM STUDY OF EACH BREAST) Routine 01/28/2005 3:36 PM EST Other Screening Mammogram HEP C ANTIBODY (EIA-2) Routine 9:53 AM EDT from Last 3 Months or Most Recently Relevant to Health Maintenance Results * Due to [place] state law, this organization might not be sharing negative HIV tests. * THIN PREP PAP TEST WITH HUMAN PAPILLOMAVIRUS (HPV) DNA, HIGH (01/14/2007) THINPREP PAP TEST WITH HPV SEE TEXT [facility] (CLIA# [id number]) Comment: THINPREP PAP TEST SOURCES: CERVIX, ENDOCERVIX, VAGINA CLINICAL HISTORY: LMP: 2 YRS POST MENOPAUSAL ADDITIONAL INFORMATION LPS 1 YR AGO STATEMENT OF ADEQUACY: SATISFACTORY, ENDOCERVICAL/TRANSFORMATION ZONE COMPONENT IS PRESENT RESULT: NEGATIVE FOR INTRAEPITHELIAL LESION OR MALIGNANCY HPV DNA TEST: NOT DETECTED HIGH/INTERMEDIATE RISK HPV DNA SUBTYPES (16,18,31,33,35,39,45, 51,52,56,58,59,68) ARE NOT DETECTED. RESULT DATE: 01/19/2007 TECHNOLOGIST: [facility]ISAT GYNECOLOGICAL CYTOLOGY IS A SCREENING PROCEDURE SUBJECT TO BOTH FALSE NEGATIVE AND FALSE POSITIVE RESULTS. IT IS MOST RELIABLE WHEN A SATISFACTORY SAMPLE IS OBTAINED ON A REGULAR REPETITIVE BASIS. RESULTS MUST BE INTERPRETED IN THE CONTEXT OF HISTORIC AND CURRENT CLINICAL INFORMATION. 01/14/2007 01/17/2007 8:4 1 AM EST us Jd Gonzalez MD PATHOLOGY-INTERFACED Final Resu lt [facility] (CLIA# [id number]) [address] [place] [address] * SCREENING MAMMOGRAPHY BILATERAL (TWO VIEW FILM STUDY OF EACH BREAST) (01/28/2005 3:36 PM EST) RADIOLOGY REPORT Bilateral mammograms: There is some fibroglandular density in each breast. Tiny opacity previously suggested in the outer right breast on cc projection of 09/19/01 is no longer seen. At this time there is no evidence of discrete mass, suspicious calcification or architectural distortion in either breast. There are bilateral stable small axillary nodes. Impression: No changes of concern for malignancy. A letter (A) in lay language describing the results will follow this report. The FDA, in accordance with the Mammography Quality Standards Act, requires that this letter be sent to the patient by the interpreting radiologist. BI-RADS Category 2: Benign Finding [facility] (CLIA# [id number]) LETTER SENT A mammogram letter type A B was printed on 02/04/2005 [facility] (CLIA# [id number]) Anatomical Region Laterality Modality Other 01/28/2005 3:36 PM EST Narrative 01/28/2005 4:28 PM EST Reason for Study/History: ROUTINE MAMMO Test(s) processed by : [facility] GOLD Jd Gonzalez MD GENERAL IMAGING- OTHER Final Re sult * HEP C ANTIBODY (EIA-2) (08/25/2001 9:53 AM EDT) HEPATITIS C AB NEGATIVE [facility] (CLIA# [id number]) 08/25/2001 9:53 AM EDT 08/25/2001 9:53 AM EDT us Flaco Salmon MD LABORATORY Final Result [facility] (CLIA# [id number]) [address] [place] [address] from Last 3 Months or Most Recently Relevant to Health Maintenance Insurance [facility] Care Teams Physician Gynecologist Relationship Specialty Start Date End Date Unknown Pcp, Non Rmg PCP - General 11/13/08
--- OUTSIDE RECORDS SUMMARY | 2025-07-29 19:26 | XMS_ITS | Encounter Summary ---
Author Organization [facility] Address [address] [place] [address] Care Team Providers Care Data Virtualization Consultant Name Role Phone Unknown Pcp, Non Rmg Primary Care Provider Unava ilJd Chase MD Primary Care Provider Unavaila ble Encounter Details Date Type Department Care Team (Late st Contact Info) Description 01/20/2007 Orders Only [facility] [address] [place] [address] Jd Singleton MD Social History Tobacco Use Types Packs/Day Years Used Date Smoking Tobacco: Every Day Comments Unknown Sex and Gender Information Value Date Recorded Sex Assigned at Not on file Legal Sex Female 5:58 PM EDT Gender Identity Not on file Sexual Orientation Not on file documented as of this encounter Plan of Treatment Not on file documented as of this encounter Procedures * Due to [place] [employer] law, this organization might not be sharing negative HIV tests. Procedure Name Priority Date/Time Associated Diagnosis Comments BASIC METABOLIC PANEL Routine 01/20/2007 HTN (HYPERTENSION) CBC 5 PART DIFF Routine 01/20/2007 HTN (HYPERTENSION) ALANINE AMINOTRANSFERASE (ALT), SERUM Routine 01/20/2007 HLD (HYPERLIPIDEMIA) TSH, THYROTROPIN Routine 01/20/2007 HLD (HYPERLIPIDEMIA) URINALYSIS, COMPLETE (DIP & MICRO) Routine 01/20/2007 HTN (HYPERTENSION) CARDIAC RISK/LIPID PROFILE I Routine 01/20/2007 HLD (HYPERLIPIDEMIA) documented in this encounter Results * Due to [place] state law, this organization might not be sharing negative HIV tests. * TSH, THYROTROPIN (01/20/2007) TSH, THYROTROPIN 2.9 0.3 - 5.5 UIU/ML [facility] (CLIA# [id number]) 01/20/2007 01/20/2007 12: 35 PM EST Jd Singleton MD LABORATORY Final Result Performing Organization Address City/[facility]/ZIP Co de Phone Number [facility] (CLIA# [id number]) [address] [place] [address] * (ABNORMAL) CARDIAC RISK/LIPID PROFILE I (01/20/2007) CHOLESTEROL, TOTAL 258(H) 100 - 199 MG/DL [facility] (CLIA# [id number]) TRIGLYCERIDES 238(H) 30 - 149 MG/DL [facility] (CLIA# [id number]) HDL-CHOLESTEROL 33(L) 40 - 77 MG/DL [facility] (CLIA# [id number]) LDL-CHOLESTEROL 177(H) 62 - 130 MG/DL [facility] (CLIA# [id number]) Comment: RISK CATEGORY: LDL-CHOLESTEROL GOAL CHD AND CHD RISK EQUIVALENTS: <100 MULTIPLE (2+) FACTORS: <130 ZERO TO ONE RISK FACTOR: <160 CHD RELATIVE RISK RATIO (TOTAL/HDL) 7.82 [facility] (CLIA# [id number]) Comment:(2.2 X AVERAGE) 01/20/2007 01/20/2007 12: 35 PM EST Jd Singleton MD LABORATORY Final Result Performing Organization Address City/[facility]/ZIP Co de Phone Number [facility] (CLIA# [id number]) [address] [place] [id number] * ALANINE AMINOTRANSFERASE (ALT), SERUM (01/20/2007) ALT (SGPT) 30 3 - 40 U/L [facility] (CLIA# [id number]) 01/20/2007 01/20/2007 12: 35 PM EST us Jd Singleton MD LAB SAME DAY RESULT Final Resul t [facility] (CLIA# [id number]) [address] [place] [address] * (ABNORMAL) URINALYSIS, COMPLETE (DIP & MICRO) (01/20/2007) COLOR (URINE) YELLOW YELLOW [facility] (CLIA# [id number]) APPEARANCE (URINE) TURBID(A) CLEAR [facility] (CLIA# [id number]) SPECIFIC GRAVITY 1.026 1.001 - 1.035 [facility] (CLIA# [id number]) PH (URINE) 5.5 5.0 - 8.0 [facility] (CLIA# [id number]) PROTEIN (URINE) NEG NEG [facility] (CLIA# [id number]) GLUCOSE (URINE) NEG NEG [facility] (CLIA# [id number]) Ketones (Urine) NEG NEG [facility] (CLIA# [id number]) BILIRUBIN (URINE) NEG NEG [facility] (CLIA# [id number]) BLOOD (URINE) TRACE(A) NEG [facility] (CLIA# [id number]) WBC (URINE) 1+(A) NEG [facility] (CLIA# [id number]) NITRITE (URINE) POSITIVE(A) NEG [facility] (CLIA# [id number]) WBC (URINE) 20-40(A) 0-4/HPF [facility] (CLIA# [id number]) RBC (Urine Sed) 0-3 0-3/HPF [facility] (CLIA# [id number]) EPITHELIAL CELLS.SQUAMOUS (URINE SED) 20-27(A) 0-5/HPF [facility] (CLIA# [id number]) EPITHELIAL CELLS.TRANSITI ONAL (URINE SED) 0-5 0-5/HPF [facility] (CLIA# [id number]) EPITHELIAL CELLS.RENAL (URINE SED) 0 0-3/HPF [facility] (CLIA# [id number]) BACTERIA (URINE) MODERATE(A) NONE SEEN [facility] (CLIA# [id number]) URINE CALCIUM OXYLATE CRYSTALS MODERATE NONE-FEW/H PF [facility] (CLIA# [id number]) URINE CRYSTALS MODERATE AMORPHOUS [facility] (CLIA# [id number]) 01/20/2007 01/20/2007 12: 35 PM EST us Jd Singleton MD LAB SAME DAY RESULT Final Resul t [facility] (CLIA# [id number]) [address] [place] [address] * (ABNORMAL) CBC 5 PART DIFF (01/20/2007) WHITE BLOOD COUNT 9.1 3.8 - 10.8 1000/UL [facility] (CLIA# [id number]) RBC 4.91 3.80 - 5.10 MIL/UL [facility] (CLIA# [id number]) Hemoglobin 14.8 11.7 - 15.5 G/DL [facility] (CLIA# [id number]) HCT (HEMATOCRIT) 43 35 - 45 % [facility] (CLIA# [id number]) MCV 88 80 - 100 FL [facility] (CLIA# [id number]) MCH 30 27 - 33 PG [facility] (CLIA# [id number]) MCHC 34 32 - 36 G/DL [facility] (CLIA# [id number]) BAND % 0 0 - 5 % [facility] (CLIA# [id number]) NEUTROPHIL % 61 48 - 75 % [facility] (CLIA# [id number]) LYMPHOCYTE % 23 17 - 40 % [facility] (CLIA# [id number]) MONOCYTE % 9 0 - 14 % [facility] (CLIA# [id number]) EOSINOPHIL % 6(H) 0 - 5 % [facility] (CLIA# [id number]) BASOPHIL % 1 0 - 3 % [facility] (CLIA# [id number]) ATYPICAL LYMPHOCYTE % 0 0 - 5 % [facility] (CLIA# [id number]) PLATELETS 158 140 - 400 THOU/UL [facility] (CLIA# [id number]) BANDS # 0 0 - 500 /UL [facility] (CLIA# [id number]) NEUTROPHILS # 5551 1500 - 7800 /UL [facility] (CLIA# [id number]) LYMPHOCYTES # 2093 850 - 3900 /UL [facility] (CLIA# [id number]) MONOCYTES # 819 200 - 950 /UL [facility] (CLIA# [id number]) EOSINOPHILS # 546 50 - 550 /UL [facility] (CLIA# [id number]) BASOPHILS # 91 0 - 200 /UL [facility] (CLIA# [id number]) ATYPICAL LYMPHOCYTES # 0 0 - 200 /UL [facility] (CLIA# [id number]) RDW 12.6 11.0 - 15.0 % [facility] (CLIA# [id number]) MPV 10.1 7.5 - 11.5 FL [facility] (CLIA# [id number]) 01/20/2007 01/20/2007 12: 35 PM EST us Jd Singleton MD LAB SAME DAY RESULT Final Resul t [facility] (CLIA# [id number]) [address] [place] [address] * BASIC METABOLIC PANEL (01/20/2007) CALCIUM 9.0 8.5 - 10.4 MG/DL [facility] (CLIA# [id number]) BUN 18 7 - 25 MG/DL [facility] (CLIA# [id number]) CREATININE 0.8 0.5 - 1.2 MG/DL [facility] (CLIA# [id number]) BUN/Creatinine Ratio 23 6 - 25 [facility] (CLIA# [id number]) Glucose 95 65 - 99 MG/DL [facility] (CLIA# [id number]) SODIUM 140 135 - 146 MMOL/L [facility] (CLIA# [id number]) POTASSIUM 3.8 3.5 - 5.3 MMOL/L [facility] (CLIA# [id number]) CHLORIDE 105 98 - 110 MMOL/L [facility] (CLIA# [id number]) CARBON DIOXIDE 23 21 - 33 MMOL/L [facility] (CLIA# [id number]) 01/20/2007 01/20/2007 12: 35 PM EST us Jd Singleton MD LAB SAME DAY RESULT [facility]ul t [facility] (CL[facility]# [id number]) [address] [place] [address] documented in this encounter Visit Diagnoses Diagnosis HTN (HYPERTENSION) Unspecified essential hypertension HLD (HYPERLIPIDEMIA) Other and unspecified hyperlipidemia documented in this encounter Care Teams Data Virtualization Consultant Relationship Specialty Start Date End Date Unknown Pcp, Non Rmg PCP - General 11/13/08 Jd Singleton MD PCP - General 02/13/06 11/12/08 documented as of this encounter
--- OUTSIDE RECORDS SUMMARY | 2025-07-29 19:26 | XMS_ITS | Patient Health Record ---
Author Organization [facility] Address [address] [place] [address] Care Team Providers Care Transmission Maintenance Supervisor Name Role Phone BULL REESE MD Primary Care Provider JARRETT Mendoza Unavailable [phone] Allergies Allergen (clinical drug ingredient) Drug/Non Drug Allergy documented on EMR Reaction Allergy Type Onset Date Status Levaquin Unknown Drug Allergy Active Contrast Allergy PreMed Pack rash/itching Drug Allergy Active Results Component Value Reference Range Notes COCAINE QUANTITATIVE (Not ye t reviewed by provider) Interpretation: Performing Lab:[facility], [address], [place], [place] [id number], Phone - , Director - Martinez Nava MD Notes/Report: Prescribed Medications: No drugs were prescribed. CocaineMetabolite,U/CFM NEGATIVE 100 ng/ml OXYCODONE QUANTITATIVE (Not yet reviewed by provider) Interpretation: Performing Lab:[facility], [address], [place], [place] [phone], Phone - , Director - Martinez Nava MD Notes/Report: Prescribed Medications: No drugs were prescribed. Oxycodone 894 POSITIVE Inconsistent 50 ng/mL Sources of Oxycodone include Oxycontin, Oxynorm, Roxicodone, Combunox, Endocet, Endoden, Percocet Prcodan, Roxicet and Tylox. Oxycodone is also a known impurity in various commercial preparations of oxymorphone. Oxymorphone 240 POSITIVE Inconsistent 50 ng/mL Oxymorphone is a metabolite of oxycodone, its presence is consistent with oxycodone. Oxymorphone(Opana, Opana ER) is also available as a prescription drug. Noroxycodone >2000 3664 POSITIVE Inconsistent 50 ng/mL Noroxycodone is major metabolite of Oxycodone. METHADONE QUANTITATIVE (Not yet reviewed by provider) Interpretation: Performing Lab:[facility], [address], [place], [place] [phone], Phone - , - Martinez Nava MD Notes/Report: Prescribed Medications: No drugs were prescribed. Methadone NEGATIVE 50 ng/mL EDDPMethadoneMetabolite NEGATIVE 50 ng/mL MDMA (ECSTASY) QUANTITATIVE (Not yet reviewed by provider) Interpretation: Performing Lab:[facility], [address], [place], [place] [phone], Phone - , Director - Martinez Nava MD Notes/Report: Prescribed Medications: No drugs were prescribed. MDMA(Ecstasy) NEGATIVE 100 ng/mL MethyleneDioxyEthylAmphe. NEGATIVE 100 ng/mL MethyleneDioxyAmphetamine NEGATIVE 100 ng/mL 6-ACETYLMORPHINE QUANTITATIV E (Not yet reviewed by provider) Interpretation: Performing Lab:[facility], [address], [place], [place] [phone], Phone - , - Martinez Nava MD Notes/Report: Prescribed Medications: No drugs were prescribed. 6MAM(HeroineMetabolite),U/CFM NEGATIVE 10 ng/mL TRAMADOL QUANTITATIVE (Not y et reviewed by provider) Interpretation: Performing Lab:[facility], [address], [place], [place] [phone], Phone - , - Martinez Nava MD Notes/Report: Prescribed Medications: No drugs were prescribed. Tramadol NEGATIVE 100 ng/ml O-Desmethyltramadol NEGATIVE 50 ng/mL NITRITEURINE 48 0-199 ug/mL PHURINE 5.4 4.5-9.0 pH SPECIFICGRAVITY 1.012 1.0010-1.0250 CREATININE 79 20-300 mg/dL If CREATININE is <20 mg/dL urine sample should be considered DILUTED. If NITRITE is 200-499 ug/mL the results should be evaluated with caution and possibly be considered invalid. If NITRITE is >499 ug/mL the urine sample should be considered ADULTERATED. If pH is 3.0-4.5 or 9.0-11.0 the results should be evaluated with caution and possibly be considered invalid. If pH is <3.0 or >11.0 the urine sample should be considered ADULTERATED. FENTANYL QUANTITATIVE (Not y et reviewed by provider) Interpretation: Performing Lab:[facility], [address], [place], [place] [phone], Phone - , Director - Martinez Nava MD Notes/Report: Prescribed Medications: No drugs were prescribed. Fentanyl NEGATIVE 2 ng/mL Norfentanyl NEGATIVE 10 ng/mL BUPRENORPHINE QUANTITATIVE ( Not yet reviewed by provider) Interpretation: Performing Lab:[facility], [address], [place], [place] [phone], Phone - , Director - Martinez Nava MD Notes/Report: Prescribed Medications: No drugs were prescribed. Naloxone NEGATIVE 20 ng/mL Buprenorphine NEGATIVE 10 ng/ml Norbuprenorphine NEGATIVE 10 ng/mL BENZODIAZEPINE QUANTITATIVE (Not yet reviewed by provider) Interpretation: Performing Lab:[facility], [address], [place], [place] [phone], Phone - , - Martinez Nava MD Notes/Report: Prescribed Medications: No drugs were prescribed. Alprazolam NEGATIVE 50 ng/mL Alpha-HydroxyAlprazolam NEGATIVE 50 ng/mL Nordiazepam NEGATIVE 50 ng/mL Oxazepam NEGATIVE 50 ng/mL Temazepam NEGATIVE 50 ng/mL Clonazepam NEGATIVE 50 ng/mL 7-AminoClonazepam NEGATIVE 50 ng/mL Lorazepam NEGATIVE 50 ng/mL Flurazepam NEGATIVE 50 ng/mL 2-HydroxyEthylFlurazepam NEGATIVE 50 ng/mL Desalkylflurazepam NEGATIVE 50 ng/mL Midazolam NEGATIVE 50 ng/mL Alpha-Hydroxymidazolam NEGATIVE 50 ng/mL Chlordiazepoxide NEGATIVE 50 ng/mL Diazepam NEGATIVE 50 ng/mL Flunitrazepam NEGATIVE 50 ng/mL OPIATES QUANTITATIVE (Not ye t reviewed by provider) Interpretation: Performing Lab:[facility], [address], [place], [place] [id number], Phone - , - Martinez Nava MD Notes/Report: Prescribed Medications: No drugs were prescribed. Codeine NEGATIVE 50 ng/mL Morphine NEGATIVE 50 ng/mL Hydrocodone NEGATIVE 50 ng/mL Hydromorphone NEGATIVE 50 ng/mL Norhydrocodone NEGATIVE 50 ng/mL Dihydrocodeine NEGATIVE 50 ng/mL MUSCLE RELAXANT, QUANTITATIV E (Not yet reviewed by provider) Interpretation: Performing Lab:[facility], [address], [place], [place] [id number], Phone - , - Martinez Nava MD Notes/Report: Prescribed Medications: No drugs were prescribed. Carisoprodol NEGATIVE 100 ng/mL Meprobamate NEGATIVE 100 ng/mL Cyclobenzaprine NEGATIVE 50 ng/mL Amphetamine (Not yet reviewe d by provider) Interpretation: Performing Lab:[facility], [address], [place], [place] [phone], Phone - , - Martinez Nava MD Notes/Report: Prescribed Medications: No drugs were prescribed. Amphetamine,U/CFM NEGATIVE 100 ng/mL Methamphetamine NEGATIVE 100 ng/mL CREATININE (Not yet reviewed by provider) Interpretation: Performing Lab:[facility], [address], [place], [place] [id number], Phone - , - Martinez Nava MD Notes/Report: Prescribed Medications: No drugs were prescribed. CREATININE 79 20-300 mg/dL If CREATININE is <20 mg/dL urine sample should be considered DILUTED. If NITRITE is 200-499 ug/mL the results should be evaluated with caution and possibly be considered invalid. If NITRITE is >499 ug/mL the urine sample should be considered ADULTERATED. If pH is 3.0-4.5 or 9.0-11.0 the results should be evaluated with caution and possibly be considered invalid. If pH is <3.0 or >11.0 the urine sample should be considered ADULTERATED. LAB REPORT (Not yet reviewed by provider) Interpretation: Performing Lab:[facility], [address], [place], [place] [phone], Phone - , Director - Martinez Nava MD Notes/Report: Prescribed Medications: No drugs were prescribed. PDF LAB BARBITURATES QUANTITATIVE (N ot yet reviewed by provider) Interpretation: Performing Lab:[facility], [address], [place], [place] [id number], Phone - , Director - Martinez Nava MD Notes/Report: Prescribed Medications: No drugs were prescribed. Secobarbital NEGATIVE 100 ng/mL Phenobarbital NEGATIVE 100 ng/mL Butalbital NEGATIVE 100 ng/mL Reason For Referral No Information Medications Medication SIG (Take, Route, Frequency, Duration) Notes Start Date End Date Status Furosemide Not-Takin g amLODIPine Benzoate 5mg Not-Taking Aspirin 81 81 MG 1 tablet Orally Once a day Active Vitamin D3 125 MCG (5000 UT) 1 capsule Orally Once a day Active oxyCODONE-Acetaminophen 5-325 MG 1 tablet as needed Orally every 6 hrs Active Ferrous Sulfate 325 (65 Fe) MG 1 tablet Orally daily Active DULoxetine HCl 60 MG 1 capsule Orally On ce a day Active Omeprazole 20 MG 1 Capsule Orally Onc e a day Active Rosuvastatin Calcium 20 MG 1 tablet Orally Once a day Active Aspir-81 Not-Taking Social History Tobacco Use: Social History Observation Description Date Details (start date - stop date) Former Smoker NA - NA Tobacco Control (Standard) Question Answer Notes Tobacco use: Former smoker How long has it been since you last smoked? Grea ter than 10 years Problems Problem Type SNOMED Code ICD Code Onset Dates Problem Status W/U Status Risk Notes Problem Localized, primary osteoarthritis of the shoulder region (424790795) Primary osteoarthritis, left shoulder (M19.012) Active confirmed Problem Lumbosacral spondylosis without myelopathy (49673553) Spondylosis without myelopathy or radiculopathy, lumbar region (M47.816) Active confirmed Vital Signs Heart Rate 72 /min 03/19/2025 Temperature 97.2 degrees Fahrenheit 03/19/2025 Oximetry 92 % 03/19/2025 Blood pressure diastolic 87 mm Hg 03/19/2025 Height 60 in 03/19/2025 Blood pressure systolic 138 mm Hg 03/19/2025 Weight 160 lbs 03/19/2025 BMI 31.24 kg/m2 03/19/2025 Encounters Encounter Location Date Provider Diagnosis [facility] [address] [place] [phone] 01/02/2025 JARRETT FARID Spondylosis without myelopathy or radiculopathy, lumbar region M47.816 ; Primary osteoarthritis, left shoulder 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.[address] [facility] [address] [place] [phone] 01/13/2025 JARRETT FARID Spondylosis without myelopathy or radiculopathy, lumbar region M47.816 ; Primary osteoarthritis, left shoulder M19.012 and [facility] (current) use of opiate analgesic Z79.[address] [facility] [address] [place] [phone] 02/13/2025 JARRETT FARID Spondylosis without myelopathy or radiculopathy, lumbar region M47.816 ; Primary osteoarthritis, left shoulder M19.012 and [facility] (current) use of opiate analgesic Z79.[address] [facility] [address] [place] [phone] 03/19/2025 JARRETT FARID Spondylosis without myelopathy or radiculopathy, lumbar region M47.816 ; Primary osteoarthritis, left shoulder M19.012 and [facility] (current) use of opiate analgesic Z79.[address] [facility] [address] [place] [phone] 01/02/2025 JARRETT FARID [facility] [address] [place] [phone] 01/13/2025 JARRETT FARID [facility] [address] [place] [phone] 02/13[facility] [address] [place] [phone] 03/19/2025 JARRETT FARID Assessments Encounter Date Diagnosis (ICD Code) Assessment Notes Treatment Notes Treatment Clinical Notes Section Notes 01/02/2025 Primary osteoarthritis, left shoulder (ICD-10 - M19.012) 01/02/2025 Spondylosis without myelopathy or radiculopathy, lumbar region (ICD-10 - M47.816) regarding medication management, I reviewed the patient's prescription monitoring program, the patient is reporting that she is tolerating current doses of oxycodone APAP 5/325 1 p.o. 4 times daily with no side effects at this point I do not recommend increasing her narcotic intake at this point due to her severe COPD and history of hypoxia regarding physical therapy, continue physical therapy exercises regarding the left shoulder pain, the patient has tried and failed conservative treatments for the last 3 months including nonsteroidals, Tylenol, physical therapy exercises with no relief she has functional difficulty with lifting objects, sleeping on her left shoulder, walking, using the cane due to the pain in the left shoulder, pain score is more than VAS of 6 based on that I will offer her a trial of left shoulder joint injection to help relieve that pain next visit regarding the lumbar pain interventional procedures, I reviewed the patient's lumbar MRI done on 10/03/2024 that revealed L3-4, 4 5, 5 S1 facet arthropathies and degenerative changes the patient has tried and failed conservative treatments for the last 3 months including nonsteroidals, Tylenol, physical therapy exercises with no relief she has functional difficulty standing, walking, sleeping, sitting in a car due to the lumbar pain she has positive bilateral lumbar facet loading test on exam today negative straight leg raising test pain score is more than VAS of 6 based on that I am requesting authorization for a trial of diagnostic bilateral lumbar L4-5, L5-S1 #2 facet joints diagnostic lumbar medial branch blocks with local anesthetics only 29795, 48573 bilateral . If successful the patient might be eligible for radiofrequency ablation. Thank you Dr. Reese for your kind referral, please feel free to call me with any questions. 01/13/2025 Spondylosis without myelopathy or radiculopathy, lumbar region (ICD-10 - M47.816) regarding medication management, I reviewed the patient's prescription monitoring program, the patient is reporting that she is tolerating current doses of oxycodone APAP 5/325 1 p.o. 4 times daily with no side effects at this point I do not recommend increasing her narcotic intake at this point due to her severe COPD and history of hypoxia regarding physical therapy, continue physical therapy exercises regarding the left shoulder pain, the patient has tried and failed conservative treatments for the last 3 months including nonsteroidals, Tylenol, physical therapy exercises with no relief she has functional difficulty with lifting objects, sleeping on her left shoulder, walking, using the cane due to the pain in the left shoulder, pain score is more than VAS of 6 based on that I will offer her a trial of left shoulder joint injection to help relieve that pain next visit regarding the lumbar pain interventional procedures, I reviewed the patient's lumbar MRI done on 10/03/2024 that revealed L3-4, 4 5, 5 S1 facet arthropathies and degenerative changes the patient has tried and failed conservative treatments for the last 3 months including nonsteroidals, Tylenol, physical therapy exercises with no relief she has functional difficulty standing, walking, sleeping, sitting in a car due to the lumbar pain she has positive bilateral lumbar facet loading test on exam today negative straight leg raising test the patient had a successful diagnostic lumbar medial branch block on 01/13/2025 the procedure offered the patient 90% reduction of pain improved mobility activity analgesia range of motion ability to bend, twist, rotate, hyperextend the lumbar spine without pain for 1 hour after the procedure during that period of time the pain score droppedMessage please request authorization for bilateral lumbar L4-5, L5-S1 #2 facet joints medial branches blocks 42984, 65612 bilateral diagnosis M47.816 Lumbar spondylosis date of service 01/02/2025 but the pain recurred after 1 hour of relief and pain score prior to discharge was VAS of 6 based on that I am requesting authorization for a trial of the second diagnostic bilateral lumbar L4-5, L5-S1 #2 facet joints diagnostic lumbar medial branch blocks with local anesthetics only [id number], 09616 bilateral . If successful the patient might be eligible for radiofrequency ablation. Thank you Dr. Reese for your kind referral, please feel free to call me with any questions. 02/13/2025 Spondylosis without myelopathy or radiculopathy, lumbar region (ICD-10 - M47.816) regarding medication management, I reviewed the urine drug screen test done on 01/06/2025 that revealed that this was positive for oxycodone and its metabolitesI reviewed the patient's prescription monitoring program, the patient is reporting that she is tolerating current doses of oxycodone APAP 5/325 1 p.o. 4 times daily with no side effects at this point I do not recommend increasing her narcotic intake at this point due to her severe COPD and history of hypoxia regarding physical therapy, continue physical therapy exercises regarding the left shoulder pain, the patient has tried and failed conservative treatments for the last 3 months including nonsteroidals, Tylenol, physical therapy exercises with no relief she has functional difficulty with lifting objects, sleeping on her left shoulder, walking, using the cane due to the pain in the left shoulder, pain score is more than VAS of 6 based on that I will offer her a trial of left shoulder joint injection to help relieve that pain next visit regarding the lumbar pain interventional procedures, I reviewed the patient's lumbar MRI done on 10/03/2024 that revealed L3-4, 4 5, 5 S1 facet arthropathies and degenerative changes the patient has tried and failed conservative treatments for the last 3 months including nonsteroidals, Tylenol, physical therapy exercises with no relief she has functional difficulty standing, walking, sleeping, sitting in a car due to the lumbar pain she has positive bilateral lumbar facet loading test on exam today negative straight leg raising test the patient had 2 successful diagnostic lumbar medial branch blocks on 01/13/2025 and on 02/13/2025 the procedures offered the patient 90% reduction of pain improved mobility activity analgesia range of motion ability to bend, twist, rotate, hyperextend the lumbar spine without pain for 10 days after the first diagnostic block and for 1 hour after the second diagnostic block, during that period of time the pain score dropped from pain score of 8 to pain score of 1 after each diagnostic block, the patient continued lumbar core exercises between the diagnostic blocks,but the pain recurred after 1 hour of relief and pain score prior to discharge was VAS of 6 based on that I am requesting authorization for a trial of the bilateral lumbar L4-5, L5-S1 #2 facet joints lumbar medial branchs radiofrequency ablation. 33732, [address] Reese for your kind referral, please feel free to call me with any questions. 03/19/2025 Spondylosis without myelopathy or radiculopathy, lumbar region (ICD-10 - M47.816) regarding medication management, I reviewed the urine drug screen test done on 01/06/2025 that revealed that this was positive for oxycodone and its metabolitesI reviewed the patient's prescription monitoring program, the patient is reporting that she is tolerating current doses of oxycodone APAP 5/325 1 p.o. 4 times daily with no side effects at this point I do not recommend increasing her narcotic intake at this point due to her severe COPD and history of hypoxia regarding physical therapy, continue physical therapy exercises regarding the left shoulder pain, the patient has tried and failed conservative treatments for the last 3 months including nonsteroidals, Tylenol, physical therapy exercises with no relief she has functional difficulty with lifting objects, sleeping on her left shoulder, walking, using the cane due to the pain in the left shoulder, pain score is more than VAS of 6 based on that I will offer her a trial of left shoulder joint injection to help relieve that pain next visit regarding the lumbar pain interventional procedures, I reviewed the patient's lumbar MRI done on 10/03/2024 that revealed L3-4, 4 5, 5 S1 facet arthropathies and degenerative changes the patient has tried and failed conservative treatments for the last 3 months including nonsteroidals, Tylenol, physical therapy exercises with no relief she has functional difficulty standing, walking, sleeping, sitting in a car due to the lumbar pain she has positive bilateral lumbar facet loading test on exam today negative straight leg raising test the patient had 2 successful diagnostic lumbar medial branch blocks on 01/13/2025 and on 02/13/2025 the procedures offered the patient 90% reduction of pain improved mobility activity analgesia range of motion ability to bend, twist, rotate, hyperextend the lumbar spine without pain for 10 days after the first diagnostic block and for 10 days after the second diagnostic block, during that period of time the pain score dropped from pain score of 8 to pain score of 1 after each diagnostic block, the patient continued lumbar core exercises between the diagnostic blocks,but the pain recurred that and pain score today was more than VAS of 6 based on that I am requesting authorization for a trial of the bilateral lumbar medial branch radiofrequency ablation procedure today Thank you Dr. Reese for your kind referral, please feel free to call me with any questions. 02/13/2025 Primary osteoarthritis, left shoulder (ICD-10 - M19.012) 03/19/2025 Primary osteoarthritis, left shoulder (ICD-10 - M19.012) the patient is suffering from left shoulder pain she has tried nonsteroidals, Tylenol, physical therapy exercises for the last 3 months with no relief she has functional difficulty lifting objects, sleeping on her left shoulder, cooking, cleaning due to the left shoulder pain pain score is more than VAS of 6 based on that I am requesting authorization for left shoulder joint injection to help relieve the pain [id number] 01/02/2025 [facility] (current) use of opiate analgesic (ICD-10 - Z79.891) 01/13/2025 Primary osteoarthritis, left shoulder (ICD-10 - M19.012) 02/13/2025 [facility] (current) use of opiate analgesic (ICD-10 - Z79.891) 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) 03/19/2025 [facility] (current) use of opiate analgesic (ICD-10 - Z79.891) 01/02/2025 Other Plan Of Treatment Pending Test Test Name Order Date COCAINE QUANTITATIVE 01/06/2025 OXYCODONE QUANTITATIVE 01/06/2025 BARBITURATES QUANTITATIVE 01/06/2025 METHADONE QUANTITATIVE 01/06/2025 MDMA (ECSTASY) QUANTITATIVE 01/06/2025 6-ACETYLMORPHINE QUANTITATIVE 01/06/2025 TRAMADOL QUANTITATIVE 01/06/2025 FENTANYL QUANTITATIVE 01/06/2025 BUPRENORPHINE QUANTITATIVE 01/06/2025 BENZODIAZEPINE QUANTITATIVE 01/06/2025 OPIATES QUANTITATIVE 01/06/2025 MUSCLE RELAXANT, QUANTITATIVE 01/06/2025 Amphetamine 01/06/2025 CREATININE 01/06/2025 LAB REPORT 01/06/2025 Insurance Providers Payer Name Payer Address Payer Phone Subscriber Number Group Number Insured Name Patient Relationship to Insured Coverage Start Date Coverage End Date [facility] PPO [address] [place] [address] [id number] SONU FREEMAN Self - patient is the insured Medical (General) History Medical History History ICD Code copd constipation joint pain arthritis Surgical History Surgery Date(Month/Year) back surgeries 12/2012 Hospitalization History Reason Date(Month/Year) rehab for 1 year 12/2012
--- OUTSIDE RECORDS SUMMARY | 2025-07-29 19:26 | XMS_ITS | Encounter Summary ---
Author Organization [facility] Address [address] [place] [address] Care Team Providers Care Grinding Room Supervisor Name Role Phone Unknown Pcp, Non [facility] Primary Care Provider Unava ilJd Chase MD Primary Care Provider Unavaila ble Encounter Details Date Type Department Care Team (Late st Contact Info) Description 08/17/2006 Orders Only [facility] [address] [place] [address] Jd Singleton MD Social History Tobacco Use Types Packs/Day Years Used Date Smoking Tobacco: Every Day Comments Unknown Sex and Gender Information Value Date Recorded Sex Assigned at Not on file Legal Sex Female 5:58 PM EDT Gender Identity Not on file Sexual Orientation Not on file documented as of this encounter Plan of Treatment Not on file documented as of this encounter Visit Diagnoses Not on filedocumented in this encounter Care Teams Grinding Room Supervisor Relationship Specialty Start Date End Date Unknown Pcp, Non [facility] PCP - General 11/13/08 Jd Singleton MD PCP - General 02/13/06 11/12/08 documented as of this encounter
--- OUTSIDE RECORDS SUMMARY | 2025-07-29 19:26 | XMS_ITS | Encounter Summary ---
Author Organization [facility] Address [address] [place] [address] Care Team Providers Care Edge Blacker Name Role Phone Unknown Pcp, Non [facility]mg Primary Care Provider Unava ilJd Chase MD Primary Care Provider Unavaila ble Encounter Details Date Type Department Care Team (Late st Contact Info) Description 04/13/2008 Abstract [facility] [address] [place] [id number] Jd Singleton MD Social History Tobacco Use [...] on filedocumented in this encounter Care Teams Edge Blacker Relationship Specialty Start Date End Date Unknown Pcp, Non [facility]mg PCP - General 11/13/08 Jd Singleton MD PCP - General 02/13/06 11/12/08 documented as of this encounter
[2025-07-29 23:26] VITALS: BP 130/62; PULSE 70; RESP 16; TEMP 36.4; O2SAT 95
[2025-07-30] MEDS: oxyCODONE HCl Immed Release 5 MG TABLET PO (00:07)
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
[2025-07-30 07:53] LABS: Hemoglobin A1C 140.9399 umol/L; Total Hemoglobin (HGBA1C) 4038.9948 umol/L
[2025-07-30 08:00] VITALS: BP 112/66; PULSE 69; RESP 15; TEMP 36.6; O2SAT 92
[2025-07-30 08:00] LABS: Alanine Aminotransferase 9 U/L (0-31); Albumin Level 4.2 g/dL (3.5-5.0); Alkaline Phosphatase 68 U/L (39-117); Anion Gap 12 (12-20); Aspartate Amino Transferase 18 U/L (5-31); Blood Urea Nitrogen 15 mg/dL (9-16); Calcium 9.1 mg/dL (8.4-10.2); Carbon Dioxide 33 mmol/L (22-29); Chloride 106 mmol/L (96-108); Cholesterol 127 mg/dL (<200); Estimated Glomerular Filt Rate > 60; HDL Cholesterol 39 mg/dL (>40); Potassium 3.3 mmol/L (3.3-5.1); Sodium 148 mmol/L (135-145); Total Protein 6.3 g/dL (6.5-8.0); Triglycerides 113 mg/dL (<150)
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
--- NOTE | 2025-07-30 08:44 | HO.PSYADMNOT ---
HPI Chief Complaint: crisis Diagnostics Vital Signs (24Hr): Vital Signs - 24 hr 07/29/25 23:26 Temperature 97.5 F Pulse Rate 70 Respiratory Rate 16 Blood Pressure 130/62 Pulse Oximetry 95 Oxygen Delivery Method Nasal Cannula Oxygen Flow Rate 3 Labs 07/30/25 07:25 Labs: Laboratory Results - last 48 hr 07/30/25 07:25 Sodium 148 H Potassium 3.3 Chloride 106 Carbon Dioxide 33 H Anion Gap 12 BUN 15 Creatinine 0.65 Estim Creat Clear Calc TNP Estimated GFR > 60 Random Glucose 107 Estimat Average Glucose 105 Hemoglobin A1c % 5.3 Calcium 9.1 Total Bilirubin 0.4 AST 18 ALT 9 Alkaline Phosphatase 68 Total Protein 6.3 L Albumin 4.2 Triglycerides 113 Cholesterol 127 LDL Cholesterol, Calc 66 HDL Cholesterol 39 L Meds/Allergies Meds Home Medications ?Medication ?Instructions ?Recorded ?Confirmed ?Type albuterol sulfate 2.5 mg/3 mL 2.5 mg inhalation Q6H PRN wheezing 07/29/25 07/29/25 History (0.083 %) solution for nebulization albuterol sulfate 2.5 mg/3 mL mg inhalation QID PRN Shortness Of 07/29/25 History (0.083 %) solution for nebulization Breath Or Wheezing amlodipine 2.5 mg tablet 2.5 mg PO DAILY 07/29/25 History amlodipine 5 mg tablet 5 mg PO DAILY 07/29/25 History amlodipine 5 mg tablet 5 mg PO DAILY 07/29/25 07/29/25 History amlodipine 5 mg tablet 5 mg PO DAILY 07/29/25 07/29/25 History aspirin 81 mg tablet,delayed 81 mg PO DAILY 07/29/25 07/29/25 History release aspirin 81 mg tablet,delayed 81 mg PO DAILY 07/29/25 07/29/25 History release azithromycin 500 mg tablet 500 mg PO DAILY 07/29/25 07/29/25 History cholecalciferol (vitamin D3) 50 50 mcg PO DAILY 07/29/25 07/29/25 History mcg (2,000 unit) capsule docusate sodium 100 mg capsule 100 mg PO BID 07/29/25 07/29/25 History duloxetine 60 mg capsule,delayed 60 mg PO BID 07/29/25 07/29/25 History release duloxetine 60 mg capsule,delayed 60 mg PO BID 07/29/25 07/29/25 History release ferrous sulfate 325 mg (65 mg 325 mg PO DAILY 07/29/25 07/29/25 History iron) tablet omeprazole 20 mg capsule,delayed 20 mg PO BID 07/29/25 07/29/25 History release oxycodone-acetaminophen 5 mg-325 1 tab PO Q6H PRN Pain (Scale Score 07/29/25 07/29/25 History mg tablet 7-10) oxycodone-acetaminophen 5 mg-325 1 tab PO QID PRN Pain 07/29/25 07/29/25 History mg tablet prednisone 20 mg tablet 20 mg PO BID 07/29/25 History prednisone 20 mg tablet 20 mg PO BID 07/29/25 07/29/25 History rosuvastatin 20 mg tablet 20 mg PO NEEDED PRN Pain 07/29/25 History rosuvastatin 20 mg tablet 20 mg PO BEDTIME 07/29/25 07/29/25 History rosuvastatin 20 mg tablet 20 mg PO BEDTIME 07/29/25 07/29/25 History Allergies Allergies Allergy/AdvReac Type Severity Reaction Status Date / Time Iodinated Contrast Media Allergy Unknown Verified 07/29/25 22:24 (Contrast Dye) levofloxacin (From Levaquin) Allergy Unknown Verified 07/29/25 22:25 Assessment & Plan Statement Statement: I have reviewed the history and physical and performed a pertinent examination on my patient. No changes have occurred unless specified. If the History and Physical was not performed prior to admission, the Hospitalist's service will be consulted for completing the admission physical. Time Spent With Patient Time: Total time managing care of this patient today ____ minutes.
[2025-07-30 09:33] VITALS: BP 112/66
[2025-07-30] MEDS: Ferrous Sulfate 324 MG TABLET.DR PO (09:33)
[2025-07-30] MEDS: Aspirin Enteric Coated 81 MG TABLET.DR PO (09:33)
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
[2025-07-30 20:00] VITALS: BP 129/61; PULSE 92; RESP 17; TEMP 36.6; O2SAT 95
[2025-07-31 08:06] LABS: Hematocrit 45.4 % (37.0-47.0); Hemoglobin 15.5 g/dl (12.0-16.0); Imm Gran Abs Auto 0.04 X10*3/uL (0.00-0.03); Imm Gran Pct Auto 0.5 % (0.0-0.4); Lymphocytes Absolute Auto 1.3 X10*3/uL (1.2-4.9); MANUAL DIFF FLAG NO; Mean Corpuscular HGB Conc 34.1 g/dl (31.0-35.0); Mean Corpuscular Hemoglobin 31.1 pg (27.0-33.0); Mean Corpuscular Volume 91.2 fL (80.0-98.0); NRBC Abs Auto 0.000 X10*3/uL (0.0-0.012); NRBC Pct Auto 0.0 /100WBC (0.0-0.2); Platelet Count 148 X10*3/uL (160-400); Red Blood Count 4.98 X10*6/uL (4.20-5.50); White Blood Count 8.4 X10*3/uL (4.8-10.8)
[2025-07-31 08:18] LABS: Anion Gap 13 (12-20); Blood Urea Nitrogen 15 mg/dL (9-16); Calcium 9.2 mg/dL (8.4-10.2); Carbon Dioxide 34 mmol/L (22-29); Chloride 106 mmol/L (96-108); Estimated Glomerular Filt Rate > 60; Potassium 3.7 mmol/L (3.3-5.1); Sodium 149 mmol/L (135-145)
[2025-07-31 08:28] VITALS: BP 175/79; PULSE 86; RESP 18; TEMP 36.3; O2SAT 97
[2025-07-31] MEDS: Tiotropium Bromide 2.5 mcg 1 PUFF/2.5 MCG MIST.INHAL 2 PUFF INHALE (08:32)
[2025-07-31] MEDS: Ferrous Sulfate 324 MG TABLET.DR PO (08:34)
[2025-07-31] MEDS: Aspirin Enteric Coated 81 MG TABLET.DR PO (08:35)
[2025-07-31] MEDS: oxyCODONE HCl Immed Release 5 MG TABLET PO ×2 (09:14→21:22)
--- NOTE | 2025-07-31 12:04 | P.PNIM_ITS ---
Subjective Subjective Date of Service: 07/31/25 Interval History: Patient noted to have hyponatremia on labs, also noted to have elevated blood pressure this morning. Upon review blood pressure reading is isolated, we will continue to monitor for now. Patient with dry mucosa, fluids encouraged him we will repeat labs in the morning. Urine osmolality within normal limits. Blood sugar within normal limits, calcium and potassium are within normal limits. Patient denies any polyuria, polydipsia or any other concerning symptoms. Review of Systems Denies any shortness of breath, chest pain, dizziness, lightheadedness, abdominal pain or discomfort, nausea vomiting or diarrhea Physical Exam 2 Exam: Exam: CONST: Alert and oriented, in NAD. Well nourished HEENT: Normocephalic, atraumatic, oral mucosa dry, Eyes clear, Neck supple RESP: Lungs clear, RRR even and regular HEART:,RRR, S1, S2. No edema GI:Abdomen Soft NT, ND. + BS times four :Deferred SKIN: Warm dry and intact, no visible lesions or rashes NEURO:CN II-XII Intact bilaterally, Sensation intact. Speech clear PSYCH: Normal affect Vital Signs: Vital Signs: Last Vital Signs Temp 97.4 F 07/31/25 08:28 Pulse 86 07/31/25 08:28 Resp 18 07/31/25 08:28 BP 175/79 H 07/31/25 08:28 Pulse Ox 97 07/31/25 08:28 O2 Del Method Nasal Cannula 07/31/25 08:28 O2 Flow Rate 3 07/31/25 08:28 Objective Data Active Medications Acetaminophen (Acetaminophen 325 Mg Tablet) 650 mg PO Q6H PRN PRN Reason: Headache/Pain, Scale 1-10 Al Hydroxide/Mg Hydroxide (Magnesium Hydrox/Alum Hydrox 30 Ml Oral.Susp) 30 ml PO Q6H PRN PRN Reason: Heartburn/Nausea Albuterol Sulfate (Albuterol Sulfate (0.083%) 2.5 Mg/3 Ml Vial.Neb) 2.5 mg INHALE Q6H PRN PRN Reason: Wheezing Amlodipine Besylate (Amlodipine Besylate 5 Mg Tablet) 5 mg PO DAILY [facility]; Protocol Last Admin: 07/31/25 08:35 Dose: 5 mg Documented By: ALLEY Aspirin (Aspirin Enteric Coated 81 Mg Tablet.) 81 mg PO DAILY [facility] Last Admin: 07/31/25 08:35 Dose: 81 mg Documented By: ALLEY Docusate Sodium (Docusate Sodium 100 Mg Capsule) 100 mg PO BID [facility] Last Admin: 07/31/25 08:34 Dose: 100 mg Documented By: ALLEY Duloxetine HCl (Duloxetine Hcl 60 Mg Capsule.) 60 mg PO BID [facility] Last Admin: 07/31/25 08:32 Dose: 60 mg Documented By: ALLEY Ferrous Sulfate (Ferrous Sulfate 324 Mg Tablet.) 324 mg PO DAILY [facility] Last Admin: 07/31/25 08:34 Dose: 324 mg Documented By: ALLEY Hydroxyzine HCl (Hydroxyzine Hcl 25 Mg Tablet) 25 mg PO Q6H PRN PRN Reason: mild anxiety Magnesium Hydroxide (Milk Of Magnesia 30 Ml Oral.Susp) 30 ml PO DAILY PRN PRN Reason: Constipation Non-Formulary Medication (Rosuvastatin) 20 mg PO BEDTIME [facility] Last Admin: 07/30/25 21:02 Dose: Not Given Documented By: CARMELITA Non-Admin Reason: Med Not Available Olanzapine (Olanzapine 5 Mg Tablet) 5 mg PO BID [facility] Last Admin: 07/31/25 08:34 Dose: 5 mg Documented By: ALLEY Olanzapine (Olanzapine 5 Mg Tablet) 5 mg PO Q6H PRN PRN Reason: psychosis or agitation Omeprazole (Omeprazole 20 Mg Capsule.) 20 mg PO BID [facility] Last Admin: 07/31/25 08:34 Dose: 20 mg Documented By: ALLEY Oxycodone HCl (Oxycodone Hcl Immed Release 5 Mg Tablet) 5 mg PO Q6H PRN PRN Reason: Pain, Severe (Pain Scale 7-10) Last Admin: 07/31/25 09:14 Dose: 5 mg Documented By: ALLEY Tiotropium [place] (Tiotropium [place] 2.5 Mcg 1 Puff/2.5 Mcg Mist.Inhal) 2 puff INHALE RDAILY [facility] Last Admin: 07/31/25 08:32 Dose: 2 puff Documented By: ALLEY Trazodone HCl (Trazodone Hcl 100 Mg Tablet) 100 mg PO BEDTIME PRN PRN Reason: Insomnia Vitamin D (Cholecalciferol (Vitamin D3) 25 Mcg Tablet) 50 mcg PO DAILY [facility] Last Admin: 07/31/25 08:33 Dose: 50 mcg Documented By: ALLEY Labs 07/31/25 07:49 07/31/25 07:49 Labs: Laboratory Results - last 24 hr 07/31/25 07:49 MCV 91.2 MCH 31.1 MCHC 34.1 RDW 13.2 Plt Count 148 L MPV 9.8 Immature Gran % (Auto) 0.5 H Neut % (Auto) 69.2 Lymph % (Auto) 16.0 L [place] % (Auto) 8.3 Eos % (Auto) 5.6 H Baso % (Auto) 0.4 Lymph # (Auto) 1.3 [place] # (Auto) 0.7 Eos # (Auto) 0.5 H Baso # (Auto) 0.0 Abs Immat Gran (auto) 0.04 H Absolute Neuts (auto) 5.8 Absolute Nucleated RBC 0.000 Nucleated RBC % (auto) 0.0 Anion Gap 13 Estim Creat Clear Calc TNP Estimated GFR > 60 Random Glucose 101 Calcium 9.2 Assessment and Plan (1) Hypernatremia: Status: Acute Plan 74-year-old female with past medical history of COPD, hypertension, hyperlipidemia, depression, anxiety, chronic pain syndrome, history of MSSA and osteomyelitis and an 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 Patient is being seen for hypernatremia and hypertension. Depression/anxiety/hallucinations Review of labs and testing from [facility] reveals no abnormalities Treatment per psychiatric team Hypernatremia Urine tests within normal limits, patient is asymptomatic Encourage fluids and recheck in the morning COPD, oxygen dependence Stable Takes Anoro at home. Will use spiriva when here. Hypertension/hyperlipidemia Continue amlodipine, aspirin and rosuvastatin Blood pressures have been stable upon review. Isolated elevated blood pressure reading, no changes at this time Chronic diastolic heart failure Appears euvolemic on exam, dry mucosa Previously taking Lasix 40 mg. History of iron deficiency anemia Continue Ferrous sulfate History of osteomyelitis and abscess in the thoracic spine/chronic back pain/chronic pain syndrome Defer pain management to psychiatric team Thank you for allowing me to participate in the care of this patient. We will continue to follow as needed. Please reconsult of any acute concerns or issues arise Quality Stroke Does the patient have a stroke diagnosis?: No VTE Prior VTE?: No VTE Risk Level:: Medical - low VTE Device Contraindication: Treatment Not Indicated VTE Drug Contraindication: Treatment Not Indicated
--- NOTE | 2025-07-31 14:45 | HO.PSYCHPN ---
Subjective Subjective Date of Service: 07/31/25 Reason For Visit: delirium Interim History: feeling well, thinking clearly, slept well. asking about labs, labs reviewed. pt notes elevated BP, BPs also reviewed. Mental Status Exam Mental Status Exam Narrative: adequately dressed and groomed. cooperative. no PMA/PMR. speech nml rate, amount, loudness, tone, latency. thoughts linear and logical. affect full range, normo-intense, non-labile. mood good. no SI/SIBI/HI/AVH expressed. Diagnostics Vital Signs (24Hr): Vital Signs - 24 hr 07/30/25 20:00 07/31/25 08:28 Temperature 97.8 F 97.4 F Pulse Rate 92 86 Respiratory Rate 17 18 Blood Pressure 129/61 175/79 H Pulse Oximetry 95 97 Oxygen Delivery Method Nasal Cannula Nasal Cannula Oxygen Flow Rate 3 3 Labs 07/31/25 07:49 07/31/25 07:49 Labs: Laboratory Results - last 48 hr 07/30/25 07/31/25 07/31/25 07:25 07:49 13:35 WBC 8.4 RBC 4.98 Hgb 15.5 Hct 45.4 MCV 91.2 MCH 31.1 MCHC 34.1 RDW 13.2 Plt Count 148 L MPV 9.8 Immature Gran % (Auto) 0.5 H Neut % (Auto) 69.2 Lymph % (Auto) 16.0 L [place] % (Auto) 8.3 Eos % (Auto) 5.6 H Baso % (Auto) 0.4 Lymph # (Auto) 1.3 [place] # (Auto) 0.7 Eos # (Auto) 0.5 H Baso # (Auto) 0.0 Abs Immat Gran (auto) 0.04 H Absolute Neuts (auto) 5.8 Absolute Nucleated RBC 0.000 Nucleated RBC % (auto) 0.0 Sodium 148 H 149 H Potassium 3.3 3.7 Chloride 106 106 Carbon Dioxide 33 H 34 H Anion Gap 12 13 BUN 15 15 Creatinine 0.65 0.65 Estim Creat Clear Calc TNP TNP Estimated GFR > 60 > 60 Random Glucose 107 101 Estimat Average Glucose 105 Hemoglobin A1c % 5.3 Calcium 9.1 9.2 Total Bilirubin 0.4 AST 18 ALT 9 Alkaline Phosphatase 68 Total Protein 6.3 L Albumin 4.2 Triglycerides 113 Cholesterol 127 LDL Cholesterol, Calc 66 HDL Cholesterol 39 L Ur Random Sodium 33.0 Ur Random Potassium 35.4 Ur Random Chloride 43.0 Medications Medications Current Medications Acetaminophen (Acetaminophen 325 Mg Tablet) 650 mg PO Q6H PRN PRN Reason: Headache/Pain, Scale 1-10 Al Hydroxide/Mg Hydroxide (Magnesium Hydrox/Alum Hydrox 30 Ml Oral.Susp) 30 ml PO Q6H PRN PRN Reason: Heartburn/Nausea Albuterol Sulfate (Albuterol Sulfate (0.083%) 2.5 Mg/3 Ml Vial.Neb) 2.5 mg INHALE Q6H PRN PRN Reason: Wheezing Amlodipine Besylate (Amlodipine Besylate 5 Mg Tablet) 5 mg PO DAILY [facility]; Protocol Last Admin: 07/31/25 08:35 Dose: 5 mg Aspirin (Aspirin Enteric Coated 81 Mg Tablet.) 81 mg PO DAILY [facility] Last Admin: 07/31/25 08:35 Dose: 81 mg Docusate Sodium (Docusate Sodium 100 Mg Capsule) 100 mg PO BID [facility] Last Admin: 07/31/25 08:34 Dose: 100 mg Duloxetine HCl (Duloxetine Hcl 60 Mg Capsule.) 60 mg PO BID [facility] 234 [facility]S AT [facility] Last Admin: 07/31/25 08:32 Dose: 60 mg Ferrous Sulfate (Ferrous Sulfate 324 Mg Tablet.) 324 mg PO DAILY [facility] 234 B[facility]S AT [facility] Last Admin: 07/31/25 08:34 Dose: 324 mg Hydroxyzine HCl (Hydroxyzine Hcl 25 Mg Tablet) 25 mg PO Q6H PRN PRN Reason: mild anxiety Magnesium Hydroxide (Milk Of Magnesia 30 Ml Oral.Susp) 30 ml PO DAILY PRN PRN Reason: Constipation Non-Formulary Medication (Rosuvastatin) 20 mg PO BEDTIME [facility] 234 [facility]S [facility] Last Admin: 07/30/25 21:02 Dose: Not Given Olanzapine (Olanzapine 5 Mg Tablet) 5 mg PO BID [facility] Last Admin: 07/31/25 08:34 Dose: 5 mg Olanzapine (Olanzapine 5 Mg Tablet) 5 mg PO Q6H PRN PRN Reason: psychosis or agitation Omeprazole (Omeprazole 20 Mg Capsule.) 20 mg PO BID [facility] Last Admin: 07/31/25 08:34 Dose: 20 mg Oxycodone HCl (Oxycodone Hcl Immed Release 5 Mg Tablet) 5 mg PO Q6H PRN PRN Reason: Pain, Severe (Pain Scale 7-10) Last Admin: 07/31/25 09:14 Dose: 5 mg Tiotropium [place] (Tiotropium [place] 2.5 Mcg 1 Puff/2.5 Mcg Mist.Inhal) 2 puff INHALE RDAILY [facility] 234 [facility]EDS AT [facility] Last Admin: 07/31/25 08:32 Dose: 2 puff Trazodone HCl (Trazodone Hcl 100 Mg Tablet) 100 mg PO BEDTIME PRN PRN Reason: Insomnia Vitamin D (Cholecalciferol (Vitamin D3) 25 Mcg Tablet) 50 mcg PO DAILY [facility]S [facility] Last Admin: 07/31/25 08:33 Dose: 50 mcg Allergies Allergies Allergy/AdvReac Type Severity Reaction Status Date / Time Iodinated Contrast Media Allergy Unknown Verified 07/29/25 22:24 (Contrast Dye) levofloxacin (From Levaquin) Allergy Unknown Verified 07/29/25 22:25 Assessment & Plan Assessment & Plan (1) Delirium: Status: Acute Code(s): R41.0 - Disorientation, unspecified Plan 07/30: delirium appears to have largely resolved. continue current mgmt and observe for stability. 07/31: continues with clear sensorium. referred to hospitalist for hypernatremia and HTN. continue current mgmt otherwise. Reason for continued inpatient stay Substantial Risk for: med/psych decompensation Time Spent With Patient Time: Total time managing care of this patient today __25__ minutes.
[2025-07-31 20:00] VITALS: BP 109/69; PULSE 87; RESP 18; TEMP 36.1; O2SAT 98
[2025-08-01 08:30] LABS: Anion Gap 13 (12-20); Blood Urea Nitrogen 12 mg/dL (9-16); Calcium 9.2 mg/dL (8.4-10.2); Carbon Dioxide 31 mmol/L (22-29); Chloride 105 mmol/L (96-108); Estimated Glomerular Filt Rate > 60; Potassium 3.6 mmol/L (3.3-5.1); Sodium 145 mmol/L (135-145)
[2025-08-01 09:20] VITALS: BP 134/75; PULSE 101; RESP 18; TEMP 36.3; O2SAT 95
[2025-08-01] MEDS: Tiotropium Bromide 2.5 mcg 1 PUFF/2.5 MCG MIST.INHAL 2 PUFF INHALE (09:22)
[2025-08-01] MEDS: Ferrous Sulfate 324 MG TABLET.DR PO (09:23)
[2025-08-01] MEDS: Aspirin Enteric Coated 81 MG TABLET.DR PO (09:23)
--- NOTE | 2025-08-01 09:58 | PM.EVENT ---
Event Note Date of Service: 08/01/25 Event Note: Reviewed labs and blood pressure this morning, patient's sodium normalized. Blood pressure within normal limits. Time Spent With Patient Time: Total time managing care of this patient today ____ minutes.
[2025-08-01] MEDS: oxyCODONE HCl Immed Release 5 MG TABLET PO ×2 (13:15→21:43)
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
[2025-08-01 20:00] VITALS: BP 133/70; PULSE 79; RESP 18; TEMP 36.4; O2SAT 95
[2025-08-02] MEDS: Ferrous Sulfate 324 MG TABLET.DR PO (08:10)
[2025-08-02] MEDS: Aspirin Enteric Coated 81 MG TABLET.DR PO (08:10)
[2025-08-02] MEDS: Tiotropium Bromide 2.5 mcg 1 PUFF/2.5 MCG MIST.INHAL 2 PUFF INHALE (08:11)
[2025-08-02] MEDS: oxyCODONE HCl Immed Release 5 MG TABLET PO ×3 (08:14→22:06)
[2025-08-02 08:17] VITALS: BP 119/60; PULSE 82; RESP 18; TEMP 36.7; O2SAT 94
[2025-08-02 08:20] VITALS: BMI 27.7
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
[2025-08-02 20:00] VITALS: BP 108/59; PULSE 68; RESP 18; TEMP 36.2; O2SAT 96
[2025-08-03 08:10] VITALS: BP 133/63; PULSE 72; RESP 18; TEMP 36.2; O2SAT 95
[2025-08-03] MEDS: Tiotropium Bromide 2.5 mcg 1 PUFF/2.5 MCG MIST.INHAL 2 PUFF INHALE (09:06)
[2025-08-03] MEDS: Ferrous Sulfate 324 MG TABLET.DR PO (09:07)
[2025-08-03] MEDS: Aspirin Enteric Coated 81 MG TABLET.DR PO (09:08)
[2025-08-03] MEDS: oxyCODONE HCl Immed Release 5 MG TABLET PO ×3 (09:14→21:40)
--- NOTE | 2025-08-03 13:18 | HO.PM.IMPN ---
Subjective Subjective Date of Service: 08/03/25 Interval History: On unit inpatient appeared to be choking on a piece of orange. She reports that it ?went down the wrong pipe?. On exam she is coughing able to clear airway able to speak in full sentences. No oxygen desaturation. She is eating and drinking well. We will obtain speech language eval for dietary recommendations. Monitor patient for any evidence of aspiration including fever or adventitious lung sounds, change in vital signs. Review of Systems Denies any shortness of breath, chest pain, dizziness, lightheadedness, abdominal pain or discomfort, nausea vomiting or diarrhea Physical Exam Exam: Exam: CONST: Alert and oriented, in NAD. Well nourished HEENT: Normocephalic, atraumatic, MMM, Eyes clear, Neck supple RESP: Lungs clear, RRR even and regular. No cyanosis HEART:,RRR, S1, S2. No edema GI:Abdomen Soft NT, ND. + BS times four :Deferred SKIN: Warm dry and intact, no visible lesions or rashes NEURO:CN II-XII Intact bilaterally, Sensation intact. Speech clear PSYCH: Normal affect Vital Signs: Vital Signs: Last Vital Signs Temp 97.2 F 08/03/25 08:10 Pulse 72 08/03/25 08:10 Resp 18 08/03/25 08:10 BP 133/63 08/03/25 08:10 Pulse Ox 95 08/03/25 08:10 O2 Del Method Nasal Cannula 08/03/25 08:10 O2 Flow Rate 3 08/03/25 08:10 Objective Data Active Medications Acetaminophen (Acetaminophen 325 Mg Tablet) 650 mg PO Q6H PRN PRN Reason: Headache/Pain, Scale 1-10 Al Hydroxide/Mg Hydroxide (Magnesium Hydrox/Alum Hydrox 30 Ml Oral.Susp) 30 ml PO Q6H PRN PRN Reason: Heartburn/Nausea Albuterol Sulfate (Albuterol Sulfate (0.083%) 2.5 Mg/3 Ml Vial.Neb) 2.5 mg INHALE Q6H PRN PRN Reason: Wheezing Amlodipine Besylate (Amlodipine Besylate 5 Mg Tablet) 5 mg PO DAILY [facility]; Protocol Last Admin: 08/03/25 09:08 Dose: 5 mg Documented By: WILMAR Aspirin (Aspirin Enteric Coated 81 Mg Tablet.) 81 mg PO DAILY [facility] Last Admin: 08/03/25 09:08 Dose: 81 mg Documented By: WILMAR Docusate Sodium (Docusate Sodium 100 Mg Capsule) 100 mg PO BID [facility] Last Admin: 08/03/25 09:07 Dose: 100 mg Documented By: WILMAR Duloxetine HCl (Duloxetine Hcl 60 Mg Capsule.) 60 mg PO BID [facility] Last Admin: 08/03/25 09:07 Dose: 60 mg Documented By: WILMAR Ferrous Sulfate (Ferrous Sulfate 324 Mg Tablet.) 324 mg PO DAILY [facility] Last Admin: 08/03/25 09:07 Dose: 324 mg Documented By: WILMAR Hydroxyzine HCl (Hydroxyzine Hcl 25 Mg Tablet) 25 mg PO Q6H PRN PRN Reason: mild anxiety Last Admin: 08/01/25 21:43 Dose: 25 mg Documented By: CHAVEZ Magnesium Hydroxide (Milk Of Magnesia 30 Ml Oral.Susp) 30 ml PO DAILY PRN PRN Reason: Constipation Non-Formulary Medication (Rosuvastatin) 20 mg PO BEDTIME [facility] Last Admin: 08/02/25 22:06 Dose: Not Given Documented By: BAUDILIO Non-Admin Reason: Patient Refused Olanzapine (Olanzapine 5 Mg Tablet) 5 mg PO BID [facility] Last Admin: 08/03/25 09:08 Dose: 5 mg Documented By: WILMAR Olanzapine (Olanzapine 5 Mg Tablet) 5 mg PO Q6H PRN PRN Reason: psychosis or agitation Omeprazole (Omeprazole 20 Mg Capsule.) 20 mg PO BID [facility] Last Admin: 08/03/25 09:07 Dose: 20 mg Documented By: WILMAR Oxycodone HCl (Oxycodone Hcl Immed Release 5 Mg Tablet) 5 mg PO Q6H PRN PRN Reason: Pain, Severe (Pain Scale 7-10) Last Admin: 08/03/25 09:14 Dose: 5 mg Documented By: WILMAR Tiotropium [place] (Tiotropium [place] 2.5 Mcg 1 Puff/2.5 Mcg Mist.Inhal) 2 puff INHALE RDAILY [facility] Last Admin: 08/03/25 09:06 Dose: 2 puff Documented By: WILMAR Trazodone HCl (Trazodone Hcl 100 Mg Tablet) 100 mg PO BEDTIME PRN PRN Reason: Insomnia Last Admin: 08/02/25 22:07 Dose: 100 mg Documented By: BAUDILIO Vitamin D (Cholecalciferol (Vitamin D3) 25 Mcg Tablet) 50 mcg PO DAILY [facility] Last Admin: 08/03/25 09:06 Dose: 50 mcg Documented By: WILMAR Labs 07/31/25 07:49 08/01/25 07:51 Assessment and Plan (1) Hypernatremia: Status: Acute Plan 74-year-old female with past medical history of COPD, hypertension, hyperlipidemia, depression, anxiety, chronic pain syndrome, history of MSSA and osteomyelitis and an 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 Patient is being seen for episode of choking at dinner. Depression/anxiety/hallucinations Review of labs and testing from [facility] reveals no abnormalities Treatment per psychiatric team Choking episode We will obtain speech language eval to determine if changes in diet texture necessary Monitor temp and O2 sat Q shift for 3 days Monitor for evidence of aspiration COPD, oxygen dependence Stable Takes Anoro at home. Will use spiriva when here. Hypertension/hyperlipidemia Continue amlodipine, aspirin and rosuvastatin Blood pressures have been stable upon review. Chronic diastolic heart failure Appears euvolemic on exam Previously taking Lasix 40 mg. History of iron deficiency anemia Continue Ferrous sulfate History of osteomyelitis and abscess in the thoracic spine/chronic back pain/chronic pain syndrome Defer pain management to psychiatric team Thank you for allowing me to participate in the care of this patient. We will continue to follow as needed. Please reconsult of any acute concerns or issues arise Quality Stroke Does the patient have a stroke diagnosis?: No VTE Prior VTE?: No VTE Risk Level:: Medical - low VTE Device Contraindication: Treatment Not Indicated VTE Drug Contraindication: Treatment Not Indicated
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
--- NOTE | 2025-08-03 14:15 | PC.NURSE ---
While pt was eating her lunch, pt choked on an orange slice. Pt was able to clear the orange slice and clear her throat by coughing. Hospitalist notified. Hospitalist evaluated the pt and Temperature and O2 sat ordered Qshift for aspiration precautions.
--- NOTE | 2025-08-03 16:20 | MHC.SLORD ---
Speech Language Pathology Order Status: Order received late PM for swallow study, unfortunately ANALYSIS ENGINEER working with outpatients at this time. Patient will be seen on Wednesday for assessment, however if need is urgent, ANALYSIS ENGINEER compo conveyor operator 08-02 and Wednesday and can be contacted through switchboard.
[2025-08-03 20:00] VITALS: BP 133/63; PULSE 62; RESP 16; TEMP 36.2; O2SAT 98
[2025-08-04 09:36] VITALS: BP 131/62; PULSE 64; RESP 14; TEMP 36.3; O2SAT 3
[2025-08-04] MEDS: Tiotropium Bromide 2.5 mcg 1 PUFF/2.5 MCG MIST.INHAL 2 PUFF INHALE (09:37)
[2025-08-04] MEDS: oxyCODONE HCl Immed Release 5 MG TABLET PO ×3 (09:37→21:30)
[2025-08-04] MEDS: Ferrous Sulfate 324 MG TABLET.DR PO (09:37)
[2025-08-04] MEDS: Aspirin Enteric Coated 81 MG TABLET.DR PO (09:38)
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
[2025-08-04 20:00] VITALS: BP 124/68; PULSE 89; RESP 16; TEMP 36.1; O2SAT 90
[2025-08-05 07:55] VITALS: BP 134/87; PULSE 89; RESP 18; TEMP 36.6; O2SAT 95
[2025-08-05] MEDS: Aspirin Enteric Coated 81 MG TABLET.DR PO (08:19)
[2025-08-05] MEDS: Ferrous Sulfate 324 MG TABLET.DR PO (08:20)
[2025-08-05] MEDS: Tiotropium Bromide 2.5 mcg 1 PUFF/2.5 MCG MIST.INHAL 2 PUFF INHALE (08:20)
[2025-08-05] MEDS: oxyCODONE HCl Immed Release 5 MG TABLET PO ×2 (08:30→21:16)
--- NOTE | 2025-08-05 08:33 | PC.NURSE ---
Oxycodone 5mg given for back pain 05/31 with good effect
--- NOTE | 2025-08-05 12:37 | MHC.SLORD ---
Addendum entered and electronically signed by Radha Suggs MS, CCC-SALES FLOOR MANAGER 08/05/25 12:40: SALES FLOOR MANAGER to provide pt with education on physiological swallow mechanism in promoting her understanding and reducing risk for choking/aspiration. Original Note: Speech Language Pathology Order Status: SALES FLOOR MANAGER order status note 08/03 indicated swallow eval placed late in the day, advised SALES FLOOR MANAGER collection team lead to be contacted. Pt is tolerating regular diet with thin liquids without concern. Swallow eval d/c'd. aware.
--- NOTE | 2025-08-05 17:11 | P.PNPSI_ITS ---
Subjective Subjective Date of Service: 08/05/25 Reason For Visit: delirium Subjective Notes: Conditional Voluntary Healthcare Proxy: Yes Guardianship: No Medical Problems Affecting Mental Status: No Interim History: Patient found in her room, she was cooperative with the encounter. She presented with a bright affect. She reported that she's feeling much better. She denied SI/HI/AVH. She's looking forward to going home tomorrow. She intends to follow up outpatient treatment. She has not talked with her today, she plans to talk to him tomorrow morning. She states that her family is supportive of her, in particular, her sister who said that patient would have somewhere to go if she feels she can't stay with her any longer. Medication Compliance: Yes Side effects from medications: No Attending Groups: Yes Review of Systems Acute medical concerns: No Medical Review of Systems: unchanged Review of Systems Review of Systems Yes all other systems are reviewed and are negative Mental Status Exam Mental Status Exam Narrative: Patient Appearance: Well Groomed, adequate hygiene Patient Behavior: Appropriate Level of Consciousness: Awake, alert Patient Orientation: Person, Place and Time, situational context Memory: grossly intact to recent events Psychomotor: no agitation or slowing Speech: normal rate, tone, volume Mood: ?much better? Affect: appropriate range Thought Process: Goal Oriented Thought Content: denies SI/HI; focused on treatment questions Hallucinations: Denies; does not appear preoccupied Delusions: None evinced Insight: mild impairment Judgment: mild impairment Impulsivity: low Diagnostics Vital Signs (24Hr): Vital Signs - 24 hr 08/04/25 20:00 08/05/25 07:55 Temperature 97 F 97.9 F Pulse Rate 89 89 Respiratory Rate 16 18 Blood Pressure 124/68 134/87 Pulse Oximetry 90 L 95 Oxygen Delivery Method Room Air Room Air BMI result Body Mass Index 27.7 Labs 07/31/25 07:49 08/01/25 07:51 Medications Medications Current Medications Acetaminophen (Acetaminophen 325 Mg Tablet) 650 mg PO Q6H PRN PRN Reason: Headache/Pain, Scale 1-10 Al Hydroxide/Mg Hydroxide (Magnesium Hydrox/Alum Hydrox 30 Ml Oral.Susp) 30 ml PO Q6H PRN PRN Reason: Heartburn/Nausea Albuterol Sulfate (Albuterol Sulfate (0.083%) 2.5 Mg/3 Ml Vial.Neb) 2.5 mg INHALE Q6H PRN PRN Reason: Wheezing Amlodipine Besylate (Amlodipine Besylate 5 Mg Tablet) 5 mg PO DAILY [facility]; Protocol Last Admin: 08/05/25 08:19 Dose: 5 mg Aspirin (Aspirin Enteric Coated 81 Mg Tablet.) 81 mg PO DAILY [facility] Last Admin: 08/05/25 08:19 Dose: 81 mg Atorvastatin Calcium (Atorvastatin Calcium 80 Mg Tablet) 80 mg PO BEDTIME [facility] Last Admin: 08/04/25 21:12 Dose: 80 mg Docusate Sodium (Docusate Sodium 100 Mg Capsule) 100 mg PO BID [facility] Last Admin: 08/05/25 08:19 Dose: 100 mg Duloxetine HCl (Duloxetine Hcl 60 Mg Capsule.) 60 mg PO BID [facility] Last Admin: 08/05/25 08:19 Dose: 60 mg Ferrous Sulfate (Ferrous Sulfate 324 Mg Tablet.) 324 mg PO DAILY [facility] Last Admin: 08/05/25 08:20 Dose: 324 mg Hydroxyzine HCl (Hydroxyzine Hcl 25 Mg Tablet) 25 mg PO Q6H PRN PRN Reason: mild anxiety Last Admin: 08/04/25 02:00 Dose: 25 mg Magnesium Hydroxide (Milk Of Magnesia 30 Ml Oral.Susp) 30 ml PO DAILY PRN PRN Reason: Constipation Olanzapine (Olanzapine 5 Mg Tablet) 5 mg PO BID [facility] Last Admin: 08/05/25 08:20 Dose: 5 mg Olanzapine (Olanzapine 5 Mg Tablet) 5 mg PO Q6H PRN PRN Reason: psychosis or agitation Omeprazole (Omeprazole 20 Mg Capsule.) 20 mg PO BID [facility] Last Admin: 08/05/25 08:20 Dose: 20 mg Oxycodone HCl (Oxycodone Hcl Immed Release 5 Mg Tablet) 5 mg PO Q6H PRN PRN Reason: Pain, Severe (Pain Scale 7-10) Last Admin: 08/05/25 08:30 Dose: 5 mg Tiotropium [place] (Tiotropium [place] 2.5 Mcg 1 Puff/2.5 Mcg Mist.Inhal) 2 puff INHALE RDAILY [facility] Last Admin: 08/05/25 08:20 Dose: 2 puff Trazodone HCl (Trazodone Hcl 100 Mg Tablet) 100 mg PO BEDTIME PRN PRN Reason: Insomnia Last Admin: 08/04/25 02:01 Dose: 100 mg Vitamin D (Cholecalciferol (Vitamin D3) 25 Mcg Tablet) 50 mcg PO DAILY [facility] Last Admin: 08/05/25 08:20 Dose: 50 mcg Allergies Allergies Allergy/AdvReac Type Severity Reaction Status Date / Time Iodinated Contrast Media Allergy Unknown Verified 07/29/25 22:24 (Contrast Dye) levofloxacin (From Levaquin) Allergy Unknown Verified 07/29/25 22:25 Assessment & Plan Assessment & Plan (1) Hypernatremia: Status: Acute Code(s): E87.0 - Hyperosmolality and hypernatremia Plan 74-year-old woman with past medical history of COPD, hypertension, hyperlipidemia, depression, anxiety, chronic pain syndrome, history of MSSA and osteomyelitis and an 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 Patient is being seen for hypernatremia and hypertension. Depression/anxiety/hallucinations Review of labs and testing from [facility] reveals no abnormalities Treatment per psychiatric team Hypernatremia Urine tests within normal limits, patient is asymptomatic Encourage fluids and recheck in the morning COPD, oxygen dependence Stable Takes Anoro at home. Will use spiriva when here. Hypertension/hyperlipidemia Continue amlodipine, aspirin and rosuvastatin Blood pressures have been stable upon review. Isolated elevated blood pressure reading, no changes at this time Chronic diastolic heart failure Appears euvolemic on exam, dry mucosa Previously taking Lasix 40 mg. History of iron deficiency anemia Continue Ferrous sulfate History of osteomyelitis and abscess in the thoracic spine/chronic back pain/chronic pain syndrome Defer pain management to psychiatric team Thank you for allowing me to participate in the care of this patient. We will continue to follow as needed. Please reconsult of any acute concerns or issues arise Plan 07/30: delirium appears to have largely resolved. continue current mgmt and observe for stability. 07/31: continues with clear sensorium. referred to hospitalist for hypernatremia and HTN. continue current mgmt otherwise. 08/01: hypernatremia and HTN resolved. remains not delirious. cognitive testing c/w [facility]. planning to discharge by end of the week. 08/02: calm, cooperative, pleasant, oriented. planning for wednesday discharge now. continue current mgmt. 08/04: no change; plan for discharge Sunday 08/05: no change, planning for discharge tomorrow Patient educated on: diagnosis and medication risk/benefits Informed Consent: understands Reason for continued inpatient stay Substantial Risk for: stable for discharge Time Spent With Patient Time: Total time managing care of this patient today __15__ minutes.
[2025-08-05 19:55] VITALS: BP 136/67; PULSE 74; RESP 18; TEMP 36.1; O2SAT 93
[2025-08-06] MEDS: oxyCODONE HCl Immed Release 5 MG TABLET PO ×2 (03:24→09:44)
[2025-08-06 08:00] VITALS: BP 149/63; PULSE 77; RESP 18; TEMP 36.4; O2SAT 97
[2025-08-06 08:53] VITALS: BP 149/63
[2025-08-06] MEDS: Ferrous Sulfate 324 MG TABLET.DR PO (08:53)
[2025-08-06] MEDS: Aspirin Enteric Coated 81 MG TABLET.DR PO (08:53)
[2025-08-06] MEDS: Tiotropium Bromide 2.5 mcg 1 PUFF/2.5 MCG MIST.INHAL 2 PUFF INHALE (08:55)
--- NOTE | 2025-08-06 10:27 | P.DS_ITS ---
DS: Providers Provider Date of admission: 07/29/25 19:20 Primary care physician: Inderjit Reese MD Consults: 07/29/25 23:22 Consult to Hospitalist Routine Comment: Consulting Provider: [facility] [place] [facility] Reason For Exam: Direct Admission H and P 07/31/25 12:02 Consult to Hospitalist Routine Comment: Consulting Provider: [facility] [place] [facility] Reason For Exam: HTN/hypernatremia DS: Diagnosis Discharge Diagnosis (1) Hypernatremia: Status: Acute DS: Medications Discharge Medications Home Medications: Home Medications ?Medication ?Instructions ?Recorded ?Confirmed albuterol sulfate 2.5 mg/3 mL 2.5 mg inhalation Q6H WA N wheezing 07/29/25 07/29/25 (0.083 %) solution for nebulization amlodipine 5 mg tablet 5 mg PO DAILY 07/29/2507/29 aspirin 81 mg tablet,delayed 81 mg PO DAILY 07/29/25 0 07/29/25 release cholecalciferol (vitamin D3) 50 50 mcg PO DAILY 07/29/25 mcg (2,000 unit) capsule docusate sodium 100 mg capsule 100 mg PO BID 07/29/25 07/29/25 ferrous sulfate 325 mg (65 mg 325 mg PO DAILY 07/29/25 07/29/25 iron) tablet omeprazole 20 mg capsule,delayed 20 mg PO BID 07/29/25 07/29/25 release oxycodone-acetaminophen 5 mg-325 1 tab PO QID PRN Pain 07/29/25 07/29/25 mg tablet Previous Rx's ?Medication ?Instructions ?Recorded duloxetine 60 mg capsule,delayed 60 mg PO BID 30 days #60 caps 08/06/25 release olanzapine 5 mg tablet 5 mg PO BID 30 days #60 tabs 08/06/25 rosuvastatin 20 mg tablet 20 mg PO BEDTIME 30 days #30 tabs 08/06/25 trazodone 100 mg tablet 100 mg PO BEDTIME PRN Insomn ia 30 08/06/25 days #30 tabs umeclidinium 62.5 mcg/actuation 1 inh inhalation DAILY 30 days #30 08/06/25 blister powder for inhalation ea Data Data Completed and Pending Completed studies during hospitalization [Text1]: 07/31/25 07/31/25 08/01/25 07:49 13:35 07:51 WBC 8.4 RBC 4.98 Hgb 15.5 Hct 45.4 MCV 91.2 MCH 31.1 MCHC 34.1 RDW 13.2 Plt Count 148 L MPV 9.8 Immature Gran % (Auto) 0.5 H Neut % (Auto) 69.2 Lymph % (Auto) 16.0 L [place] % (Auto) 8.3 Eos % (Auto) 5.6 H Baso % (Auto) 0.4 Lymph # (Auto) 1.3 [place] # (Auto) 0.7 Eos # (Auto) 0.5 H Baso # (Auto) 0.0 Abs Immat Gran (auto) 0.04 H Absolute Neuts (auto) 5.8 Absolute Nucleated RBC 0.000 Nucleated RBC % (auto) 0.0 Sodium 149 H 145 Potassium 3.7 3.6 Chloride 106 105 Carbon Dioxide 34 H 31 H Anion Gap 13 13 BUN 15 12 Creatinine 0.65 0.66 Estim Creat Clear Calc TNP TNP Estimated GFR > 60 > 60 Random Glucose 101 105 Calcium 9.2 9.2 Urine Osmolality 635 Ur Random Sodium 33.0 Ur Random Potassium 35.4 Ur Random Chloride 43.0 DS: Summary Time Spent with Patient Time attestation: Total time managing care of this patient today ____ minutes. Discharge Plan Discharge Anticipated Discharge Date/Time: 08/06/25 10:24 Patient Disposition: Home, Self-Care Discharge Diagnosis: delerium multifactorial Referrals: Therapist: Stephanie Escamilla ([facility]) [Other] - 08/10/25 10:00 am Referral Note: Telehealth appointment- you will be sent a text with a link to join the appointment virtually; if no text received, you will receive a phone call at the appointment time. Call the above number with any questions, issues or to re-schedule. Psych Prescriber: Tara Cardoza ([facility]) [Other] - 08/17/25 11:00 am Referral Note: Telehealth- you will receive a text with a link to join the appointment virtually and if no text received, expect a phone call at the appointment time. You will need to call the above number to put a credit card on file. Expect a text with a link to complete intake paperwork. [facility] Prote[facility] - 1 Week Referral Note: Contact Estephania with any safety concerns and to inquire if there are any services that [facility] can offer Inderjit Reese MD [Primary Care Provider, Internal Medicine] - 08/17/25 2:45 pm Discharge Medications: New olanzapine 5 mg Tablet 5 mg PO BID 30 Days Qty: 60 0RF trazodone 100 mg Tablet 100 mg PO BEDTIME PRN (Reason: Insomnia) 30 Days Qty: 30 0RF umeclidinium 62.5 mcg/actuation blister with device 1 inh inhalation DAILY 30 Days Qty: 30 1RF Continued albuterol sulfate 2.5 mg /3 mL (0.083 %) solution for nebulization 2.5 mg inhalation Q6H PRN (Reason: wheezing) amlodipine 5 mg tablet 5 mg PO DAILY aspirin 81 mg tablet,delayed release (DR/EC) 81 mg PO DAILY oxycodone-acetaminophen 5-325 mg tablet 1 tab PO QID PRN (Reason: Pain) docusate sodium 100 mg Capsule 100 mg PO BID cholecalciferol (vitamin D3) 50 mcg (2,000 unit) capsule 50 mcg PO DAILY ferrous sulfate 325 mg (65 mg iron) tablet 325 mg PO DAILY omeprazole 20 mg capsule,delayed release(DR/EC) 20 mg PO BID rosuvastatin 20 mg tablet 20 mg PO BEDTIME 30 Days Qty: 30 1RF duloxetine 60 mg capsule,delayed release(DR/EC) 60 mg PO BID 30 Days Qty: 60 1RF Discontinued albuterol sulfate 2.5 mg /3 mL (0.083 %) solution for nebulization inhalation QID PRN (Reason: Shortness Of Breath Or Wheezing) prednisone 20 mg tablet 20 mg PO BID prednisone 20 mg tablet 20 mg PO BID amlodipine 2.5 mg tablet 2.5 mg PO DAILY amlodipine 5 mg tablet 5 mg PO DAILY azithromycin 500 mg tablet 500 mg PO DAILY rosuvastatin 20 mg tablet 20 mg PO NEEDED MDD 4 times a day PRN (Reason: Pain) rosuvastatin 20 mg tablet 20 mg PO BEDTIME duloxetine 60 mg capsule,delayed release(DR/EC) 60 mg PO BID aspirin 81 mg tablet,delayed release (DR/EC) 81 mg PO DAILY amlodipine 5 mg tablet 5 mg PO DAILY oxycodone-acetaminophen 5-325 mg tablet 1 tab PO Q6H PRN (Reason: Pain (Scale Score 7-10)) Discharge Orders: Discharge Order (Routine); Ordered 08/06/25 Ordered By: Sukumar Dejesus Diet: Advance to usual diet Activity on Discharge: As tolerated Stand Alone Forms: Patient Portal Discharge page, Community Support Print Language: Kinyarwanda Care Plan Goals: stable mood no confusion or hallucinations take medication as prescribed you suffered from multifactorial delerium stabilize conflict in marriage Health Concerns: recent delirium copd hx spinal problems chronic pain hx depression and anxiety Plan of Treatment: referral to outpt tx psychiatry and therapy continue cymbalta for depression anxiety and pain you were started on a new inhaler for copd 1 puff daily incruse call [phone] go to er if confused or hallucinating or si you were started on olanzapine for hallucinations anxiety and depression continue oxygen as you were here discuss with your pcp any concerns Assessment: pleasant future oriented clear sensorium Discharge Date/Time: 08/06/25 11:06
--- NOTE | 2025-08-06 11:33 | PC.NURSE ---
Patient was aware of discharge home today. Reported readiness for discharge. D/C instructions given to the patient and her Jd. Left the unit at 11:06 accompanied by her . Took her belongings with her.
== END 2025-08-06 11:06 | disposition home or self-care (01) | DRG 881 ==
PROVIDERS: Nurse Practitioner Family; Admitting Provider Psychiatry & Neurology Psychiatry; PCP Internal Medicine; Visit Provider Psychiatry & Neurology Psychiatry
DX: F32.A Depression, unspecified (principal); E87.0 Hyperosmolality and hypernatremia; I50.32 Chronic diastolic (congestive) heart failure; F05 Delirium due to known physiological condition; F41.9 Anxiety disorder, unspecified; G31.84 Mild cognitive impairment of uncertain or unknown etiology; J44.9 Chronic obstructive pulmonary disease, unspecified; G89.4 Chronic pain syndrome; E78.5 Hyperlipidemia, unspecified; D50.9 Iron deficiency anemia, unspecified; I11.0 Hypertensive heart disease with heart failure; Z87.891 Personal history of nicotine dependence; Z99.81 Dependence on supplemental oxygen; Z79.82 Long term (current) use of aspirin; Z79.899 Other long term (current) drug therapy
CPT/HCPCS: 36415; 80048; 80053; 80061; 82436; 83036; 83935; 84133; 84300; 85025

== ENCOUNTER → 2025-07-29 19:20 | Outpatient (BNV) | payer MEDICARE, SELFPAY | PROVIDERS: Admitting Provider Psychiatry & Neurology Psychiatry; PCP Internal Medicine; Visit Provider Psychiatry & Neurology Psychiatry | DX: F32.A Depression, unspecified (principal) | CPT/HCPCS: 99231; 99232 ==

== ENCOUNTER → 2025-07-29 19:20 | Outpatient (BNV) | payer MEDICARE, SELFPAY | PROVIDERS: Admitting Provider Psychiatry & Neurology Psychiatry; PCP Internal Medicine; Visit Provider Nurse Practitioner Family | DX: E87.0 Hyperosmolality and hypernatremia (principal) | CPT/HCPCS: 99222; 99231; 99499 ==

== ENCOUNTER → 2025-07-29 19:20 | Outpatient (BNV) | payer MEDICARE, SELFPAY | PROVIDERS: Admitting Provider Psychiatry & Neurology Psychiatry; PCP Internal Medicine; Visit Provider Psychiatry & Neurology Psychiatry | DX: F29 Unspecified psychosis not due to a substance or known physiological condition (principal); R41.0 Disorientation, unspecified; E87.0 Hyperosmolality and hypernatremia | CPT/HCPCS: 99232 ==